=== PATIENT | male | born 1960 | race Caucasian/White ===

== ENCOUNTER 2017-09-26 13:52 | Emergency (ER) | payer BC, OTHER ==
--- NOTE | 2017-09-26 14:22 | PDOC ---
History of Present Illness - General History Source: Patient Exam Limitations: No Limitations - History of Present Illness Initial Comments: 09/26/17 14:05 57y M hx of htn presents with L shoulder pain. The pt states that he was taking a nap yesterday and he woke up went down some stairs and fell down approx 5 steps. Pt states he doesnt recall everything exactly, but realls stumbling down a few stops and then landed on his L shoulder. Pt denies any head injury, neck pain, back pain, leg pain, abd pain, R arm pain, vision changes, numbness/ weakness. Pt took some ibuprofen and oxycodone last night afterwards with some improvement of pain, but pt noticed he couldnt abduct his shoulder so presented for evaluation. Pt noted he had some tingling at the 2-4th finger tips, but notes he usually has some tingling in those fingers for many months but hasnt mentioned anything to his doctor. pt denies any LOC. pt denies feeling any cp, sob, palpitations, dizziness/ lightheadednss, vision changes, abd pain, back pain prior to the fall. 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 <Tristin Perez - Last Filed: 09/26/17 15:15> <Rosa Gonzalez - Last Filed: 09/26/17 15:27> - General Stated Complaint: L SHOULDER PAIN Time Seen by Provider: 09/26/17 13:54 Past History <Tristin Perez - Last Filed: 09/26/17 15:15> <Rosa Gonzalez - Last Filed: 09/26/17 15:27> - Past Medical History Allergies/Adverse Reactions: Allergies Allergy/AdvReac Type Severity Reaction Status Date / Time Penicillins Allergy Unknown Verified 09/26/17 14:14 Home Medications: Ambulatory Orders Amlodipine Besylate [Norvasc -] 10 mg PO DAILY 09/26/17 Oxycodone HCl 5 mg PO QID PRN #10 tablet MDD 4 09/26/17 Valsartan [Diovan] 160 mg PO DAILY 09/26/17 Review of Systems - Review of Systems Able to Perform ROS?: Yes Comments:: 09/26/17 14:22 CONSTITUTIONAL: No reported: Fever, Chills, Diaphoresis, Generalized Weakness, Malaise, Loss of Appetite HEENT: No reported: Rhinorrhea, Nasal Congestion, Throat Pain, Throat Swelling, Difficulty Swallowing, Mouth Swelling, Ear Pain, Eye Pain, Visual Changes CARDIOVASCULAR: No reported: Chest Pain, Syncope, Palpitations, Irregular Heart Rate, Lightheadedness, Peripheral Edema RESPIRATORY: No reported: Cough, Shortness of Breath, SOB with Exertion, Orthopnea, Wheezing , Stridor, Hemoptysis GASTROINTESTINAL: No reported: Abdominal pain, Abdominal Distension, Nausea, Vomiting, Diarrhea, Constipation, Melena, Hematochezia GENITOURINARY: No reported: Dysuria, Frequency, Urgency, Hesitancy, Flank Pain, Genital Pain MUSCULOSKELETAL: + l shoulder pain, tingling to fingers No reported: Myalgia, Arthralgia, Joint Swelling, Back pain, Neck Pain SKIN: No reported: Rash, Itching, Pallor HEMEATOLOGIC/IMMUNOLOGIC: No reported: Easy Bleeding, Easy Bruising, Lymphadenopathy, Frequent infections ENDOCRINE: No reported: Unexplained Weight Gain, Unexplained Weight Loss, Heat Intolerance , Cold Intolerance NEUROLOGIC: No reported: Headache, Focal Weakness, Paresthesias, Vertigo, Lightheadedness, Unsteady Gait, Seizure, Mental Status Changes, Incontinence PSYCHIATRIC: No reported: Anxiety, Depression <Ana,Tristin - Last Filed: 09/26/17 15:15> *Physical Exam - Physical Exam Comments: 09/26/17 14:23 GENERAL: The patient is awake, alert, and fully oriented, Nontoxic - in no acute distress. HEAD: Normocephalic, atraumatic. EYES: extraocular movements intact, sclera anicteric, conjunctiva clear. ENT: Normal voice, Moist mucous membranes. NECK: Normal range of motion, supple BACK: No midline tenderness to the cervical, thoracic or lumbar spine LUNGS: Breath sounds equal, clear to auscultation bilaterally. No wheezes, no rhonchi, no rales. HEART: Regular rate and rhythm, without murmur, rub or gallop. ABDOMEN: Soft, nontender, EXTREMITIES: Normal range of motion, no edema. No clubbing or cyanosis. No cords, erythema, or tenderness. NEUROLOGICAL: No facial assymetry, Normal speech, sensation intact symmetrically thrhout, environmental tech strength symmetric in hand/fingers/wrist/elbow SKIN: Warm, Dry, normal turgor, Musculoskelatal: FROM of R shoulders, b/l elbows, wrist. FROM of hips, knees, ankles - No signs of ecchymosis, erythema, or crepitus noted on palpation extremities, chest wall, clavicals, ribs, back. +fulness of L shoulder, inability to abduct L shoulder, able to extend to approx 80 degrees, able to touch contralateral shoulder with L hand. <Tristin Perez - Last Filed: 09/26/17 15:15> - Vital Signs Last Vital Signs Temp Pulse Resp BP Pulse Ox 98.4 F 81 16 125/88 96 09/26/17 14:12 09/26/17 14:12 09/26/17 14:12 09/26/17 14:12 09/26/17 14:12 <Rosa Gonzalez - Last Filed: 09/26/17 15:27> ED Treatment Course - RADIOLOGY Radiology Studies Ordered: Category Date Time Status SHOULDER-LEFT [RAD] Stat Radiology 09/26/17 14:04 Ordered <Tristin Perez - Last Filed: 09/26/17 15:15> Medical Decision Making - Medical Decision Making 09/26/17 14:25 ddx includes shoulder fx, disloation, humeral head injury pt declines pain meds 09/26/17 14:41 on xray pt has an impacted l humeral fracture will notify orthopedics pt placed in a sling <Tristin Perez - Last Filed: 09/26/17 15:15> - Medical Decision Making 2:45pm Call placed to Dr. Mace's answering service, vacuum cleaner repair person orthopedist, awaiting call back. 3:10pm Second call placed to Dr. Mace's answering service, vacuum cleaner repair person orthopedist, awaiting call back. 3:12pm Call returned from Dr. Mace, case was discussed. <Rosa Gonzalez - Last Filed: 09/26/17 15:27> *DC/Admit/Observation/Transfer - Discharge Dispostion Admit: No <Tristin Perez - Last Filed: 09/26/17 15:15> <Rosa Gonzalez - Last Filed: 09/26/17 15:27> Diagnosis at time of Disposition: Fracture of humeral head, closed Qualifiers: Encounter type: initial encounter Laterality: left Qualified Code(s): S42.292A - Other displaced fracture of upper end of left humerus, initial encounter for closed fracture - Discharge Dispostion Disposition: HOME Condition at time of disposition: Improved - Prescriptions Prescriptions: Oxycodone HCl 5 mg PO QID PRN #10 tablet MDD 4 PRN Reason: Pain - Referrals Referrals: Baljeet Liu MD [Primary Care Provider] - Martin Mace MD [Staff Physician] - - Patient Instructions Printed Discharge Instructions: DI for Humeral Fracture Additional Instructions: Keep your arm in a sling. Take motrin and tylenol as needed for pain. If you have further pain that is not controlled, you can take the oxycodone. If you take the oxycodone, do not drive or operate any heavy machinery as it may make you sleepy. Return to the emergency department immediately with ANY new, persistent or worsening symptoms. You MUST call and follow up with Dr. Mace tomorrow for further evaluation of your symptoms. Results were discussed with you. Please make sure your doctor reviews the results of your emergency evaluation. Print Language: INDONESIAN
[2017-09-26 14:28] VITALS: BP 125/88; PULSE 81; TEMP 98.4; BMI 26.5
== END 2017-09-26 15:24 | disposition home or self-care (01) ==
LOC: SUPCPDRO 13:52 → FER 13:52
DX: S42.292A Other displaced fracture of upper end of left humerus, initial encounter for closed fracture (principal); W10.9XXA Fall (on) (from) unspecified stairs and steps, initial encounter; Y93.89 Activity, other specified; Y92.9 Unspecified place or not applicable
CPT/HCPCS: 73030-TC-LT-FY; 99282-25

== ENCOUNTER 2018-07-12 04:54 | Inpatient (IN) | payer BC, OTHER ==
--- NOTE | 2018-07-12 04:57 | PDOC ---
History of Present Illness - General Chief Complaint: Pain Stated Complaint: ABD PAIN Time Seen by Provider: 07/12/18 04:57 History Source: Patient Exam Limitations: No Limitations - History of Present Illness Initial Comments: 07/12/18 04:57 Mr Pedroza is a 58 yo m who presents ambulatory to the ER with a complaint of abdominal pain Pt has a h/o HTN and a past surgical history of appendectomy (1998) and hernia repair (2003) Pt states he was in his usual state of health, felt well yesterday, tolerate po until this morning between 1 and 1:30 am He developed diffuse abdominal pain, described as sharp, constant but intermittently worsening, at it worse pain was 10/10 Pain associated with nausea and vomiting (x 2 , non bloody, non bilious, "food chunks") Pt had a small bowel movement this evening Not passing flatus Pt states he had something similar last night but it resolved almost immediately Pt denies dysuria, hematuria Pt last meal was 7pm, meatloaf 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 HEAD, EYES, EARS, NOSE AND THROAT: No: change in vision, ear pain, discharge, sore throat, throat swelling. CARDIOVASCULAR: No: chest pain, lightheadedness, palpitations, syncope RESPIRATORY: No: cough, shortness of breath, wheezing, hemoptysis, stridor. GASTROINTESTINAL: Yes: nausea, vomiting, decreased stool output, flatus GENITOURINARY: No: dysuria, hematuria, frequency, urgency, flank pain. MUSCULOSKELETAL: No: back pain, neck pain, joint pain, muscle swelling or pain SKIN: No: lesions, pallor, rash or easy bruising. NEUROLOGIC: No: headache, vertigo, paresthesias, weakness HEMATOLOGIC/LYMPHATIC: No: anemia, easy bleeding, swelling nodes. PE: GENERAL: The patient is in no acute distress. HEAD: Normal EYES: PERRLA, EOMI, sclera anicteric, conjunctiva clear. ENT: Ears normal, nares patent, oropharynx clear without exudates. Moist mucous membranes. NECK: Normal range of motion, supple without lymphadenopathy, JVD, or masses. LUNGS: Breath sounds equal, clear to auscultation bilaterally. No wheezes, and no crackles. HEART:Regular rate and rhythm, normal S1 and S2 without murmur, rub or gallop. ABDOMEN: Soft, distended, hypoactive bowel sounds RUQ and epigastrium tender to palpation No involuntary guarding, no rebound EXTREMITIES: Normal range of motion, no edema. No clubbing or cyanosis. No erythema, or tenderness. NEUROLOGICAL: Cranial nerves II through XII grossly intact. Normal speech. No focal neurological deficits. MUSCULOSKELETAL: Back non-tender to palpation, no CVA tenderness SKIN: Warm, Dry, normal turgor, no rashes or lesions noted. 07/12/18 05:34 Past History - Past Medical History Allergies/Adverse Reactions: Allergies Allergy/AdvReac Type Severity Reaction Status Date / Time Penicillins Allergy Unknown Verified 09/26/17 14:14 Home Medications: Ambulatory Orders Amlodipine Besylate [Norvasc -] 10 mg PO DAILY 09/26/17 Valsartan [Diovan] 160 mg PO DAILY 09/26/17 COPD: No HTN: Yes Hypercholesterolemia: Yes - Surgical History Appendectomy: Yes - Suicide/Smoking/Psychosocial Hx Smoking History: Never smoked Hx Alcohol Use: Yes Drug/Substance Use Hx: No ED Treatment Course - LABORATORY CBC & Chemistry Diagram: 07/20/18 07:26 07/20/18 07:26 Medical Decision Making - Medical Decision Making 07/12/18 05:17 58 yo M presenting to the ER with a complaint of abdominal pain DD includes but is not limited to: incarcerated hernia, cholecystitis, pancreatitis, gastritis, PUD, appendicitis, diverticulitis w or w/o abscess or perforation, colitis, regional ileitis (Crohn s disease), SBO, bowel ischemia, bowel perforation, gastroenteritis, CAD possible but less likely (no chest pain at all, all abdominal pain) 07/12/18 05:31 Will do: Labs UA IVF/Zofran/Morphine/Pepcid CT abd and pelvis EKG 07/12/18 06:14 Laboratory Tests 07/12/18 05:41 WBC 16.7 H Hgb 17.6 H Hct 50.9 H Plt Count 302 EKG: sinus bradycardia rate of 52 bpm, axis nml, intervals abn - pr:170ms, QRS: 162ms (prolonged), QTc: 455ms, RBBB, no st elevations or depressions old EKG not available for comparison 07/12/18 06:30 Laboratory Tests 07/12/18 05:41 PT with INR 11.20 INR 0.95 07/12/18 06:47 Laboratory Tests 07/12/18 05:41 Sodium 141 Potassium 3.6 Chloride 102 Carbon Dioxide 31 BUN 21 H Creatinine 1.2 Random Glucose 197 H Total Bilirubin 3.4 H AST 409 H ALT 308 H Total Amylase > 1300 H Lipase [address] now Will change fluids to LR Pt signed out to Dr Bob *DC/Admit/Observation/Transfer Diagnosis at time of Disposition: Gallstone pancreatitis - Discharge Dispostion Condition at time of disposition: Improved - Referrals - Patient Instructions - Post Discharge Activity
[2018-07-12] MEDS ORDERED: SODIUM CHLORIDE 1,000 ML IV STA (05:08)
[2018-07-12] MEDS ORDERED: ONDANSETRON 4 MG/2 ML VIAL IVPUSH ONE (05:08)
[2018-07-12] MEDS ORDERED: FAMOTIDINE 20 MG/50 ML IVPB 20 MG/50 ML MG IVPB ONE ×2 (05:08→05:25)
[2018-07-12] MEDS ORDERED: morphine CARPU-JECT 4 MG/1 ML DISP.SYRIN IVPUSH ONE ×2 (05:08→06:23)
[2018-07-12] MEDS ORDERED: ONDANSETRON 4 MG/2 ML VIAL ONE (05:25)
[2018-07-12] MEDS ORDERED: morphine SULFATE 4 MG/ML VIAL ONE ×2 (05:25→06:29)
[2018-07-12 06:10] LABS: BASO % 0.3 % (0-2.0); EOS % 0.1 % (0-4.5); HEMATOCRIT 50.9 % (35.4-49); HEMOGLOBIN 17.6 GM/dL (11.7-16.9); LYMPH % 3.5 % (8-40); MCH 33.1 pg (25.7-33.7); MCHC 34.5 g/dl (32.0-35.9); MEAN CELL VOLUME 95.9 fl (80-96); MEAN PLT VOLUME 8.1 fl (7.5-11.1); NEUT % 91.1 % (42.8-82.8); PLATELET COUNT 302 K/MM3 (134-434); RBC 5.31 M/mm3 (4.00-5.60); RDW 12.8 % (11.9-15.9); WHITE BLOOD COUNT 16.7 K/mm3 (4.0-10.0)
[2018-07-12 06:25] LABS: INR 0.95 (0.83-1.09); PROTHROMBIN TIME (PATIENT) 11.2 SEC (9.7-13.0)
[2018-07-12 06:46] LABS: ALBUMIN 3.9 g/dl (3.4-5.0); ALK PHOS 81 U/L (45-117); AMYLASE > 1300 U/L (25-115); ANION GAP 8 MMOL/L (8-16); BILIRUBIN,TOTAL 3.4 mg/dL (0.2-1); BLOOD UREA NITROGEN 21 mg/dL (7-18); CALCIUM 9.8 mg/dL (8.5-10.1); CHLORIDE 102 mmol/L (98-107); CO2 31 mmol/L (21-32); CREATININE 1.2 mg/dL (0.55-1.3); GLUCOSE,RANDOM 197 mg/dL (74-106); LIPASE 27605 U/L (73-393); POTASSIUM 3.6 mmol/L (3.5-5.1); SGOT/AST 409 U/L (15-37); SGPT/ALT 308 U/L (13-61); SODIUM 141 mmol/L (136-145); TOT PROT 7.8 g/dl (6.4-8.2)
[2018-07-12] MEDS ORDERED: LACTATED RINGERS SOLUTION 1,000 ML/1,000 ML INFUS.BAG IV SCH ×5 (07:00→21:00)
[2018-07-12] MEDS ORDERED: HYDROmorphone HCL CARPU-JECT 1 MG/1 ML DISP.SYRIN IVPUSH ONE (07:56)
--- NOTE | 2018-07-12 08:02 | PDOC ---
*Physical Exam - Vital Signs Last Vital Signs Temp Pulse Resp BP Pulse Ox 97.7 F 55 L 14 119/85 100 07/12/18 06:26 07/12/18 06:26 07/12/18 06:26 07/12/18 06:26 07/12/18 06:26 ED Treatment Course - LABORATORY CBC & Chemistry Diagram: 07/12/18 05:41 07/12/18 05:41 - ADDITIONAL ORDERS Additional order review: Laboratory Results 07/12/18 07/12/18 07/12/18 05:41 05:41 05:41 PT with INR INR Sodium 141 Potassium 3.6 Chloride 102 Carbon Dioxide 31 Anion Gap 8 BUN 21 H Creatinine 1.2 Creat Clearance w eGFR > 60 Random Glucose 197 H Lactic Acid Cancelled Calcium 9.8 Total Bilirubin 3.4 H AST 409 H ALT 308 H Alkaline Phosphatase 81 Creatine Kinase 111 Troponin I < 0.02 Total Protein 7.8 Albumin 3.9 Total Amylase > 1300 H Lipase 66412 H 07/12/18 05:41 PT with INR 11.20 INR 0.95 Sodium Potassium Chloride Carbon Dioxide Anion Gap BUN Creatinine Creat Clearance w eGFR Random Glucose Lactic Acid Calcium Total Bilirubin AST ALT Alkaline Phosphatase Creatine Kinase Troponin I Total Protein Albumin Total Amylase Lipase 07/12/18 05:41 RBC 5.31 MCV 95.9 MCHC 34.5 RDW 12.8 MPV 8.1 Neutrophils % 91.1 H Lymphocytes % 3.5 L Monocytes % 5.0 Eosinophils % 0.1 Basophils % 0.3 - RADIOLOGY Radiology Studies Ordered: Category Date Time Status ABDOMEN US -LIMITED [US] Stat Ultrasound 07/12/18 07:44 Ordered - Medications Given in the ED: ED Medications Discontinued Medications Generic Name Dose Route Start Last Admin Trade Name Freq PRN Reason Stop Dose Admin Famotidine/Sodium Chloride 20 mg in 50 mls @ 100 mls/hr 07/12/18 05:08 05:30 Pepcid 20 Mg Premixed Ivpb - IVPB 07/12/18 05:37 100 mls/hr ONCE ONE Administration Morphine Sulfate 4 mg 07/12/18 05:08 07/12/18 05:25 Morphine Injection - IVPUSH 07/12/18 05:09 4 mg ONCE ONE Administration Morphine Sulfate 4 mg 07/12/18 06:23 07/12/18 06:25 Morphine Injection - IVPUSH 07/12/18 06:24 4 mg ONCE ONE Administration Ondansetron HCl 4 mg 07/12/18 05:08 07/12/18 05:40 Zofran Injection IVPUSH 07/12/18 05:09 4 mg ONCE ONE Administration Medical Decision Making - Medical Decision Making 07/12/18 07:57 Received signout on this 58y/o M h/o appendectomy p/w acute onset upper abd pain /n/v. workup revealed elevated LFT including bili and amylase/lipase. pt received fluids and pain meds, plan to f/u ctap and admit. CTAP shows CBD dilatation and ampullar calcification suspicious for stone, consistent with suspected diagnosis of gallstone pancreatitis. Pt sees Dr. Liu, will admit to hospitalist with GI and Gen Surg consults. 07/12/18 08:29 accepted for inpt med/surg by EUNICE Corbett. Given need for ERCP, will need transfer to [facility]. Will arrange consults. *DC/Admit/Observation/Transfer Diagnosis at time of Disposition: Gallstone pancreatitis - Discharge Dispostion Condition at time of disposition: Good Decision to Admit order: Yes - Referrals Referrals: Baljeet Liu MD [Primary Care Provider] - - Patient Instructions - Post Discharge Activity
[2018-07-12] MEDS ORDERED: HYDROmorphone HCL CARPU-JECT 1 MG/1 ML DISP.SYRIN ONE (08:07)
--- NOTE | 2018-07-12 08:18 | HP ---
CHIEF COMPLAINT: PCP: HISTORY OF PRESENT ILLNESS: ER course was notable for: (1) (2) (3) Recent Travel: PAST MEDICAL HISTORY: PAST SURGICAL HISTORY: Social History: Smoking: Alcohol: Drugs: Family History: Allergies Penicillins Allergy (Unknown, Verified 09/26/17 14:14) HOME MEDICATIONS: Home Medications Medication Instructions Recorded Amlodipine Besylate [Norvasc -] 10 mg PO DAILY 09/26/17 Oxycodone HCl 5 mg PO QID PRN #10 tablet MDD 4 09/26/17 Valsartan [Diovan] 160 mg PO DAILY 09/26/17 REVIEW OF SYSTEMS CONSTITUTIONAL: Absent: fever, chills, diaphoresis, generalized weakness, malaise, loss of appetite, weight change HEENT: Absent: rhinorrhea, nasal congestion, throat pain, throat swelling, difficulty swallowing, mouth swelling, ear pain, eye pain, visual changes CARDIOVASCULAR: Absent: chest pain, syncope, palpitations, irregular heart rate, lightheadedness , peripheral edema RESPIRATORY: Absent: cough, shortness of breath, dyspnea with exertion, orthopnea, wheezing, stridor, hemoptysis GASTROINTESTINAL: Absent: abdominal pain, abdominal distension, nausea, vomiting, diarrhea, constipation, melena, hematochezia GENITOURINARY: Absent: dysuria, frequency, urgency, hesitancy, hematuria, flank pain, genital pain MUSCULOSKELETAL: Absent: myalgia, arthralgia, joint swelling, back pain, neck pain SKIN: Absent: rash, itching, pallor HEMATOLOGIC/IMMUNOLOGIC: Absent: easy bleeding, easy bruising, lymphadenopathy, frequent infections ENDOCRINE: Absent: unexplained weight gain, unexplained weight loss, heat intolerance, cold intolerance NEUROLOGIC: Absent: headache, focal weakness or paresthesias, dizziness, unsteady gait, seizure, mental status changes, bladder or bowel incontinence PSYCHIATRIC: Absent: anxiety, depression, suicidal or homicidal ideation, hallucinations. PHYSICAL EXAMINATION Vital Signs - 24 hr 07/12/18 07/12/18 07/12/18 05:03 06:26 08:04 Temperature 97.7 F Pulse Rate 50 L Pulse Rate [ 55 L 60 Left Radial] Respiratory 15 14 18 Rate Blood Pressure 139/95 Blood Pressure 119/85 128/91 [Right Arm] O2 Sat by Pulse 100 100 96 Oximetry (%) GENERAL: Awake, alert, and fully oriented, in no acute distress. HEAD: Normal with no signs of trauma. EYES: Pupils equal, round and reactive to light, extraocular movements intact, sclera anicteric, conjunctiva clear. No lid lag. EARS, NOSE, THROAT: Ears normal, nares patent, oropharynx clear without exudates. Moist mucous membranes. NECK: Normal range of motion, supple without lymphadenopathy, JVD, or masses. LUNGS: Breath sounds equal, clear to auscultation bilaterally. No wheezes, and no crackles. No accessory muscle use. HEART: Regular rate and rhythm, normal S1 and S2 without murmur, rub or gallop. ABDOMEN: Soft, nontender, not distended, normoactive bowel sounds, no guarding, no rebound, no masses. No hepatomegaly or splenomegaly. MUSCULOSKELETAL: Normal range of motion at all joints. No bony deformities or tenderness. No CVA tenderness. UPPER EXTREMITIES: 2+ pulses, warm, well-perfused. No cyanosis. No clubbing. No peripheral edema. LOWER EXTREMITIES: 2+ pulses, warm, well-perfused. No calf tenderness. No peripheral edema. NEUROLOGICAL: Cranial nerves II-XII intact. Normal speech. Normal gait. PSYCHIATRIC: Cooperative. Good eye contact. Appropriate mood and affect. SKIN: Warm, dry, normal turgor, no rashes or lesions noted, normal capillary refill. Laboratory Results - last 24 hr 07/12/18 07/12/18 07/12/18 05:41 05:41 05:41 WBC 16.7 H RBC 5.31 Hgb 17.6 H Hct 50.9 H MCV 95.9 MCH 33.1 MCHC 34.5 RDW 12.8 Plt Count 302 MPV 8.1 Absolute Neuts (auto) 15.2 H Neutrophils % 91.1 H Lymphocytes % 3.5 L Monocytes % 5.0 Eosinophils % 0.1 Basophils % 0.3 Nucleated RBC % 0 PT with INR 11.20 INR 0.95 Sodium 141 Potassium 3.6 Chloride 102 Carbon Dioxide 31 Anion Gap 8 BUN 21 H Creatinine 1.2 Creat Clearance w eGFR > 60 Random Glucose 197 H Lactic Acid Calcium 9.8 Total Bilirubin 3.4 H AST 409 H ALT 308 H Alkaline Phosphatase 81 Creatine Kinase Troponin I Total Protein 7.8 Albumin 3.9 Total Amylase > 1300 H Lipase 71493 H 07/12/18 07/12/18 05:41 05:41 WBC RBC Hgb Hct MCV MCH MCHC RDW Plt Count MPV Absolute Neuts (auto) Neutrophils % Lymphocytes % Monocytes % Eosinophils % Basophils % Nucleated RBC % PT with INR INR Sodium Potassium Chloride Carbon Dioxide Anion Gap BUN Creatinine Creat Clearance w eGFR Random Glucose Lactic Acid Cancelled Calcium Total Bilirubin AST ALT Alkaline Phosphatase Creatine Kinase 111 Troponin I < 0.02 Total Protein Albumin Total Amylase Lipase ASSESSMENT/PLAN:
[2018-07-12] MEDS ORDERED: HYDROmorphone HCL CARPU-JECT 1 MG/1 ML DISP.SYRIN IVPUSH PRN (08:29)
[2018-07-12] MEDS ORDERED: ONDANSETRON 4 MG/2 ML VIAL IVPUSH PRN (08:34)
[2018-07-12] MEDS ORDERED: amLODIPine BESYLATE 10 MG TABLET (FP) PO SCH (10:00)
[2018-07-12] MEDS ORDERED: VALSARTAN 160 MG TABLET (UD) PO SCH (10:00)
[2018-07-12 11:30] LABS: BILIRUBIN,DIRECT 1.3 mg/dL (0.0-0.2)
--- NOTE | 2018-07-12 11:48 | HP ---
CHIEF COMPLAINT: PCP: Dr Liu HISTORY OF PRESENT ILLNESS: Patient is a 58 year old male presented to [facility] with the chief complaint of abdominal pain x 2 days. As per the patient, abdominal pain started suddenly in the epigastric area, right upper quadrant, got worse 10/10 in intensity, non radiating, associated with nausea and one episode of vomiting. Hence came in to the ED for further evaluation and treatment. Patient reports that he drinks alcohol daily (3 beers/day) since 30 years. States he doesn't need detox. Bowel.Bladder habit normal. Sleep/Appetite normal prior to his illness. Patient was sent from [facility] to [facility] this morning. ER course was notable for: (1) Afebrile, bradycardia, leukocytosis 16.7; Amylase 1300, Lipase 20564 (2) EKG: NSR, bradycardia. Right bundle branch block. (3) IV LR, Dilaudid, Levaquin Recent Travel: None PAST MEDICAL HISTORY: Hypertension, Asthma PAST SURGICAL HISTORY: Appendectomy and Hernia 2004 Social History: Smoking: Denies Alcohol: Daily about 3 bottles/day x 30 yrs Drugs: Denies Family History: Non contributory Allergies Penicillins Allergy (Unknown, Verified 09/26/17 14:14) HOME MEDICATIONS: Home Medications Medication Instructions Recorded Amlodipine Besylate [Norvasc -] 10 mg PO DAILY 09/26/17 Oxycodone HCl 5 mg PO QID PRN #10 tablet MDD 4 09/26/17 Valsartan [Diovan] 160 mg PO DAILY 09/26/17 REVIEW OF SYSTEMS CONSTITUTIONAL: Absent: fever, chills, diaphoresis, generalized weakness, malaise, loss of appetite, weight change HEENT: Absent: rhinorrhea, nasal congestion, throat pain, throat swelling, difficulty swallowing, mouth swelling, ear pain, eye pain, visual changes CARDIOVASCULAR: Absent: chest pain, syncope, palpitations, irregular heart rate, lightheadedness , peripheral edema RESPIRATORY: Absent: cough, shortness of breath, dyspnea with exertion, orthopnea, wheezing, stridor, hemoptysis GASTROINTESTINAL: Present: abdominal pain, abdominal distension, nausea, vomiting, Absent: diarrhea, constipation, melena, hematochezia GENITOURINARY: Absent: dysuria, frequency, urgency, hesitancy, hematuria, flank pain, genital pain MUSCULOSKELETAL: Absent: myalgia, arthralgia, joint swelling, back pain, neck pain SKIN: Absent: rash, itching, pallor HEMATOLOGIC/IMMUNOLOGIC: Absent: easy bleeding, easy bruising, lymphadenopathy, frequent infections ENDOCRINE: Absent: unexplained weight gain, unexplained weight loss, heat intolerance, cold intolerance NEUROLOGIC: Absent: headache, focal weakness or paresthesias, dizziness, unsteady gait, seizure, mental status changes, bladder or bowel incontinence PSYCHIATRIC: Absent: anxiety, depression, suicidal or homicidal ideation, hallucinations. PHYSICAL EXAMINATION Vital Signs - 24 hr 07/12/18 07/12/18 07/12/18 05:03 06:26 08:04 Temperature 97.7 F Pulse Rate 50 L Pulse Rate [ 55 L 60 Left Radial] Respiratory 15 14 18 Rate Blood Pressure 139/95 Blood Pressure 119/85 128/91 [Right Arm] O2 Sat by Pulse 100 100 96 Oximetry (%) GENERAL: Middle aged male, lying in bed, Awake, alert, and fully oriented, in no acute distress. HEAD: Normal with no signs of trauma. EYES: EOM intact, no pallor or icterus. EARS, NOSE, THROAT: Ears normal. Moist mucous membranes. NECK: Supple. LUNGS: B/L breath sounds equal, no added sounds. HEART:Bradyacardia, Regular rate and rhythm, normal S1 and S2 without murmur. ABDOMEN: Soft, Mohan's sign positive, tenderness on the right upper quadrant and epigastric area, BS+. No organomegaly. MUSCULOSKELETAL: Normal range of motion at all joints. No bony deformities or tenderness. No CVA tenderness. UPPER EXTREMITIES: 2+ pulses, warm, well-perfused. No cyanosis. No clubbing. No peripheral edema. LOWER EXTREMITIES: 2+ pulses, warm, well-perfused. No calf tenderness. No peripheral edema. NEUROLOGICAL: No facial droop. Power 5/5 in all extremities, no tremors. Normal speech. Gait not observed. PSYCHIATRIC: Cooperative. Good eye contact. Appropriate mood and affect. SKIN: Warm, dry, normal turgor, no rashes or lesions noted, normal capillary refill. Laboratory Results - last 24 hr 07/12/18 07/12/18 07/12/18 05:41 05:41 05:41 WBC 16.7 H RBC 5.31 Hgb 17.6 H Hct 50.9 H MCV 95.9 MCH 33.1 MCHC 34.5 RDW 12.8 Plt Count 302 MPV 8.1 Absolute Neuts (auto) 15.2 H Neutrophils % 91.1 H Lymphocytes % 3.5 L Monocytes % 5.0 Eosinophils % 0.1 Basophils % 0.3 Nucleated RBC % 0 PT with INR 11.20 INR 0.95 Sodium 141 Potassium 3.6 Chloride 102 Carbon Dioxide 31 Anion Gap 8 BUN 21 H Creatinine 1.2 Creat Clearance w eGFR > 60 Random Glucose 197 H Lactic Acid Calcium 9.8 Total Bilirubin 3.4 H Direct Bilirubin 1.3 H AST 409 H ALT 308 H Alkaline Phosphatase 81 Creatine Kinase Troponin I Total Protein 7.8 Albumin 3.9 Total Amylase > 1300 H Lipase 31133 H 07/12/18 07/12/18 05:41 05:41 WBC RBC Hgb Hct MCV MCH MCHC RDW Plt Count MPV Absolute Neuts (auto) Neutrophils % Lymphocytes % Monocytes % Eosinophils % Basophils % Nucleated RBC % PT with INR INR Sodium Potassium Chloride Carbon Dioxide Anion Gap BUN Creatinine Creat Clearance w eGFR Random Glucose Lactic Acid Cancelled Calcium Total Bilirubin Direct Bilirubin AST ALT Alkaline Phosphatase Creatine Kinase 111 Troponin I < 0.02 Total Protein Albumin Total Amylase Lipase IMAGING Ultrasound of abdomen: 1. Mildly distended gallbladder with thickened wall and pericholecystic fluid. The associate team physician describes a positive Mohan sign and acute cholecystitis cannot be excluded. Clinical correlation and follow-up recommended. 2. Diffuse fatty infiltration of liver. Please see above discussion. Abdomen/Pelvis CT with contrast: 1. Findings consistent with acute pancreatitis , most marked about the head of the pancreas. There is free fluid in the peripancreatic region and right anterior pararenal space. 2. Mildly distended gallbladder with calculi. 3. Suspected 3 mm calculus within the distal CBD. 4. Splenomegaly. 5. Free pelvic fluid and right inguinal hernia. Please see above discussion. ASSESSMENT/PLAN: Patient is a 58 year old male with significant past medical history of Hypertension and Asthma presented to [facility] with the chief complaint of abdominal pain x 2 days. # Pancreatitis likely secondary to cholelithiasis and alcohol use c/o abdominal pain, nausea, vomiting, positive [place] Abdominal/Pelvis CT : consistent with pancreatitis Amylase 1300, lipase 22061, repeat Amylase and lipase in AM. Admit in Med/Surg Inpatient NPO IV LR @ 100 mls/hr IV Flagyl (allergic to penicillin) Pain control Pending recommendations from surgery # Cholelithiasis with CBD dilatation Suspected 3 mm calculus within the distal CBD. Elevated liver enzymes GI consult requested for possible ERCP. # Splenomegaly Likely from alcohol # Polycythemia H/H 17.6/50.9 # Alcohol abuse Drinks 3 beers daily Ativan 2mg Q4H PRN for agitation/withdrawal. Cannot use librium due to elevated liver enzymes # Hypertension-controlled Continue Amlodipine and Valsartan. # FEN IV LR @ 100mls/hr Electrolytes to be repeated NPO # Prophylaxis For DVT; on SCDs, heparin on hold for possible surgery For GI: Not indicated # Code status: Full Code # Dispo: Admitted in Med surg. Duration of stay unknown. Illness, Investigation and Plan of care explained to the patient. He verbalized understanding. Case discussed with Dr. Dickerson. Visit type - Emergency Visit Emergency Visit: Yes ED Registration Date: 07/12/18 Care time: The patient presented to the Emergency Department on the above date and was hospitalized for further evaluation of their emergent condition. - New Patient This patient is new to me today: Yes Date on this admission: 07/12/18 - Critical Care Critical Care patient: No
[2018-07-12 12:23] VITALS: BMI 25.4
[2018-07-12 12:23] LABS: ANISOCYTOSIS 0; PLATELET ESTIMATE NORMAL
--- NOTE | 2018-07-12 12:30 | CONSULT ---
- Consultation REQUESTING PROVIDER: Nam DAVIS CONSULT REQUEST: We have been asked to surgically evaluate this patient for ( specify). PCP:Shayne Browning MD HISTORY OF PRESENT ILLNESS: TAQUERIA who is a 58 y/o white male who experienced 2 episodes of post prandial RUQ and epigastric abdominal pain w/in the past 24-48 hours; the first episode resolved h/e the second persisted and he went to the [facility]; he was intially txed and a w/u ensued and he was subsequently xferred here ; he states he is feeling better; he also relates to abdominal bloating; pain was sharp w/radiation to his back and associated w/ nausea but no vomiting; he denies dark urine/light stools; he apparently is aware that he had a h/o cholelithiasis. He is a 3 can/day beer drinker; he does not smoke. PMHx: hypertension PSHx: RIH repair Home Medications Medication Instructions Recorded Amlodipine Besylate [Norvasc -] 10 mg PO DAILY 09/26/17 Oxycodone HCl 5 mg PO QID PRN #10 tablet MDD 4 09/26/17 Valsartan [Diovan] 160 mg PO DAILY 09/26/17 Allergies Allergy/AdvReac Type Severity Reaction Status Date / Time Penicillins Allergy Unknown Verified 09/26/17 14:14 REVIEW OF SYSTEMS: CONSTITUTIONAL: Absent: fever, chills, diaphoresis, generalized weakness, malaise, loss of appetite, weight change CARDIOVASCULAR: Absent: chest pain, syncope, palpitations, irregular heart rate, lightheadedness , peripheral edema RESPIRATORY: Absent: cough, shortness of breath, dyspnea with exertion, wheezing, stridor, hemoptysis GASTROINTESTINAL: Present: abdominal pain, abdominal distension, nausea, vomiting, no diarrhea, constipation, melena, hematochezia GENITOURINARY: Absent: dysuria, frequency, urgency, hesitancy, hematuria, flank pain, genital pain MUSCULOSKELETAL: Absent: myalgia, arthralgia, joint swelling, back pain, neck pain SKIN: Absent: rash, itching, pallor HEMATOLOGIC/IMMUNOLOGIC: Absent: easy bleeding, easy bruising, lymphadenopathy NEUROLOGIC: Absent: headache, focal weakness, paresthesias, dizziness, unsteady gait, seizure, mental status changes, bladder or bowel incontinence PSYCHIATRIC: Absent: anxiety, depression, suicidal or homicidal ideation, hallucinations. PHYSICAL EXAM: GENERAL: Awake, alert, and fully oriented, in no acute distress. HEAD: Normal with no signs of trauma. EYES: sclera anicteric, conjunctiva clear. NECK: Normal ROM, supple without lymphadenopathy, JVD, or masses. ABDOMEN: Soft, minimally tender, minimally distended, normoactive bowel sounds, no guarding, no rebound, no masses. No organomegaly. ? small reducible umbilical heria; recurrent RIH MUSCULOSKELETAL: Normal ROM at all joints. No bony deformities or tenderness. No CVA tenderness. UPPER EXTREMITIES: 2+ pulses, warm, well-perfused. No cyanosis. Cap refill <2 seconds. No peripheral edema. LOWER EXTREMITIES: 2+ pulses, warm, well-perfused. No calf tenderness. No peripheral edema. NEUROLOGICAL: Normal speech, gait not observed. PSYCH: Cooperative. Good eye contact. Appropriate mood and affect. SKIN: Warm, dry, normal turgor, no rashes or lesions noted. Vital Signs Temperature 97.7 F 07/12/18 06:26 Pulse Rate 60 07/12/18 08:04 Respiratory Rate 18 07/12/18 08:04 Blood Pressure 128/91 07/12/18 08:04 O2 Sat by Pulse Oximetry (%) 96 07/12/18 08:04 Lab Results WBC 16.7 K/mm3 (4.0-10.0) H 07/12/18 05:41 RBC 5.31 M/mm3 (4.00-5.60) 07/12/18 05:41 Hgb 17.6 GM/dL (11.7-16.9) H 07/12/18 05:41 Hct 50.9 % (35.4-49) H 07/12/18 05:41 MCV 95.9 fl (80-96) 07/12/18 05:41 MCHC 34.5 g/dl (32.0-35.9) 07/12/18 05:41 RDW 12.8 % (11.9-15.9) 07/12/18 05:41 Plt Count 302 K/MM3 (134-434) 07/12/18 05:41 Sodium 141 mmol/L (136-145) 07/12/18 05:41 Potassium 3.6 mmol/L (3.5-5.1) 07/12/18 05:41 Chloride 102 mmol/L (98-107) 07/12/18 05:41 Carbon Dioxide 31 mmol/L (21-32) 07/12/18 05:41 Anion Gap 8 MMOL/L (8-16) 07/12/18 05:41 BUN 21 mg/dL (7-18) H 07/12/18 05:41 Creatinine 1.2 mg/dL (0.55-1.3) 07/12/18 05:41 Random Glucose 197 mg/dL (74-106) H 07/12/18 05:41 Calcium 9.8 mg/dL (8.5-10.1) 07/12/18 05:41 INR 0.95 (0.83-1.09) 07/12/18 05:41 CT/US reviewed; labs reviewed IMP: gallstone pancreatitis/cholelithiasis PLAN: Suggest NPO/IVF/IVABS/GI evaluation for possible ERCP and related procedures; he will need lap ewsly which will hopefully be able to be done by weeks end pending response to tx. and pending therapeutic interventions. Trend LFT's and bilirubin and amylase/lipase. Victor Manuel Aviles MD FACS
[2018-07-12] MEDS ORDERED: ROCURONIUM BROMIDE 50 MG/5 ML VIAL ONE (13:15)
[2018-07-12] MEDS ORDERED: MIDAZOLAM HCL 2 MG/2 ML SINGLE DOSE VIAL ONE (13:15)
[2018-07-12] MEDS ORDERED: fentaNYL CITRATE 250 MCG/5 ML VIAL ONE (13:16)
[2018-07-12] MEDS ORDERED: CEFTRIAXONE 2 GM-D5W BAG 2 GM/50 ML BAG IVPB SCH (13:45)
--- NOTE | 2018-07-12 14:02 | CONS ---
DATE OF CONSULTATION: DATE OF DICTATION: 07/12/2018 HISTORY: The patient is a 58-year-old man with a past medical history of hypertension, asthma, appendectomy in the , and a hernia repair in 2004 who states he has been experiencing right-sided and upper quadrant abdominal pain for the past couple of days. He states the pain became worse at 1:30 in the morning prompting him to go to [facility]. He also admits to an episode of nausea and vomiting. Denies previous episodes. No diarrhea, constipation, melena, hematochezia, hematemesis, or weight loss. He does report drinking 3 beers daily since the age of 32. He does not smoke. He has never had an upper endoscopy or colonoscopy in the past. PAST MEDICAL HISTORY: As put in the HPI. PAST SURGICAL HISTORY: As put in the HPI. ALLERGIES: PENICILLIN. SOCIAL HISTORY: Drinks alcohol. Does not smoke. No intravenous drug abuse. FAMILY HISTORY: No history of GI or gynecological malignancy or pancreatic disease. REVIEW OF SYSTEMS: Negative except for pertinent positives in the HPI. HOME MEDICATIONS: Reviewed include Norvasc, Diovan, and oxycodone. PHYSICAL EXAMINATION: Vital Signs: Temperature 98, pulse 80, respiratory rate 12, pulse oximetry 96% on room air, blood pressure 143/96. General: In no acute distress. A pleasant man. HEENT: Anicteric sclerae. Cardiovascular: S1, S2. Regular rate and rhythm. Lungs: Bilaterally clear to auscultation. Abdomen: Tender in the right upper quadrant and epigastrium without rebound or guarding. Extremities: No edema. LABORATORIES: White blood cell count 16, hemoglobin 17, hematocrit 50, MCV 95, platelet count 302, INR 0.95. Sodium 141, potassium 3.6, BUN 21, creatinine 1.2 , glucose 197. Lactic acid not resulted. Total bilirubin 3.4, direct bilirubin 1.3, AST 409, ALT 308, alkaline phosphatase 81, total amylase greater than 1300, lipase 27,600. Troponin negative x1. He had abdomen and pelvis CT scan, which revealed acute pancreatitis, mildly distended gallbladder with calculi, and a 3-mm calculus within the distal CBD, splenomegaly. IMPRESSION: Pancreatitis most likely secondary to gallstone and underlying alcohol abuse. Also with imaging findings of choledocholithiasis. RECOMMENDATIONS: N.p.o. IV fluids at 200 mL/hr. Pain management. Panculture, blood cultures, urine culture. Zosyn therapy . Chest x-ray. Will discuss with Dr. Snell regarding plans for ERCP and timing of the ERCP. Trend liver tests, CBC, BUN, creatinine daily while hospitalized. We will follow this patient with you. DO CADY DIAZ/[id number] MTDD
[2018-07-12] MEDS ORDERED: IOHEXOL 300 MG/ML INFUS..BTL IV ONE (14:14)
[2018-07-12] MEDS ORDERED: LORazepam 2 MG/ML SDV VIAL IVPUSH PRN (14:19)
--- NOTE | 2018-07-12 14:55 | PN ---
Progress Note (short form) - Note Progress Note: GI Procedure Note: Please see ERCP report. After an expelled stone was found adjacent to the papilla and bulging in the duodenal wall suggested residual stones a sphincterotomy was performed and another 2 stones were extracted after which the sludge began to flow liberally. Brisk Ringers lactate will be ordered. Antibiotics should be considered. Cholecystectomy should be done when surgery decides upon the best interval.
--- NOTE | 2018-07-12 15:08 | PN ---
Teaching Attending Note Name of Resident: Diandra Hess ATTENDING PHYSICIAN STATEMENT I saw and evaluated the patient. I reviewed the resident's note and discussed the case with the resident. I agree with the resident's findings and plan as documented. SUBJECTIVE: C/O abd pain and nausea OBJECTIVE: Vital Signs Period Temp Pulse Resp BP Sys/Almaguer Pulse Ox Last 24 Hr 97.7 F-98.4 F 50-86 14-20 116-143/75-96 94-100 Middle aged man not n distress HEENT: Mm moist, no anemia, PERRLA EOMI NECK: No JVD no Bruit CHEST: CTA B/L CVS; S1S2 r no m/g/r ABD: Rt UQ tenderness, rebound + BS + EXT: No edema feet, no claf tenderness, Pulses + DIRECTOR OF STUDENT SERVICES: AOX3 non focal CBC, BMP 07/12/18 05:41 07/12/18 05:41 ASSESSMENT AND PLAN: 58 year old male presented with acute abdominal pain for 2 days, in the epigastric area, right upper quadrant, 0/10 in intensity, non radiating, associated with nausea and one episode of vomiting. Hence came in to the ED for further evaluation and treatment. also H/O ETOH abuse, drinks alcohol daily (3 beers/day) since 30 years. Patient also c/o fever and chills yesterday , leukocytosis 16.7; Amylase 1300, Lipase 27264, CT abd, Dilated CBD with 3 mm distal stone and pancreatitis , underwent ERCP performed shows bulging stones 2 stones removed Impression Gall stone pancreatitis Problem List - Problems (1) Gallstone pancreatitis Assessment/Plan: NPO except meds s/p ERCP by GI F/U GI and Surgery recommendation, IV Hydration NS 125 cc/HR, pain control, add on CRP , serial Lipase level, cont Ceftriaxone and Falgyl Code(s): K85.10 - BILIARY ACUTE PANCREATITIS WITHOUT NECROSIS OR INFECTION (2) HTN (hypertension) Assessment/Plan: Resume home meds Code(s): I10 - ESSENTIAL (PRIMARY) HYPERTENSION (3) ETOH abuse Assessment/Plan: Observe forr withdrawal/ DTS PRN Lorazepalm Thiamine and folic caid Code(s): F10.10 - ALCOHOL ABUSE, UNCOMPLICATED
--- NOTE | 2018-07-12 16:57 | EKG ---
Test Reason : Blood Pressure : / mmHG Vent. Rate : 052 BPM Atrial Rate : 052 BPM P-R Int : 170 ms QRS Dur : 162 ms QT Int : 490 ms P-R-T Axes : 000 028 -11 degrees QTc Int : 455 ms ECTOPIC ATRIAL RHYTHM RIGHT BUNDLE BRANCH BLOCK ABNORMAL ECG Confirmed by MD SANJANA, POLO ([id number]) on 07/12/2018 4:57:08 PM Referred By: MD URIARTE Confirmed By:POLO ALLAN MD
[2018-07-12 18:40] LABS: URINE APPEARANCE CLEAR; URINE BILIRUBIN NEGATIVE (<2.0 mg/dL); URINE COLOR AMBER; URINE GLUCOSE (UA) NEGATIVE (NEGATIVE); URINE KETONE NEGATIVE (NEGATIVE); URINE LEUK ESTERASE NEGATIVE (NEGATIVE); URINE NITRITE NEGATIVE (NEGATIVE); URINE PROTEIN 1+ (NEGATIVE); URINE UROBILINOGEN 4.0 E.U/dl mg/dL (0.2-1.0)
[2018-07-12 18:57] LABS: EPI CELLS RARE /HPF (FEW); URINE MUCUS RARE
[2018-07-13] MEDS ORDERED: LACTATED RINGERS SOLUTION 1,000 ML/1,000 ML INFUS.BAG IV SCH ×4 (03:00→15:00)
--- NOTE | 2018-07-13 07:40 | PN ---
GI Progress Note Subjective: Some abdominal pain Complains of feeling fullness in abdomen No BM / flatus from yesterday - Objective Vital Signs: Vital Signs Temperature 98.4 F 07/13/18 05:50 Pulse Rate 86 07/13/18 05:50 Respiratory Rate 20 07/13/18 05:50 Blood Pressure 123/79 07/13/18 05:50 O2 Sat by Pulse Oximetry (%) 95 07/12/18 21:00 Constitutional: Calm Eyes: No: Sclera Icterus Cardiovascular: Yes: Regular Rate and Rhythm Respiratory: Yes: CTA Bilaterally Gastrointestinal Inspection: Yes: Distention (mildly protuberant abdomen). No: Scars ...Auscultate: Yes: Normoactive Bowel Sounds ...Palpate: Yes: Soft, Tenderness (TTP mid abdomen and suprapubic region) ...Percussion: Yes: Tympanitic (mild tympany mid abdomen, dullness to percussion of the liver maintained) Edema: No (No LE edema) Neurological: Yes: Alert Labs: CBC, BMP 07/12/18 05:41 07/12/18 05:41 INR, PTT INR 0.95 (0.83-1.09) 07/12/18 05:41 Problem List - Problems (1) Gallstone pancreatitis Assessment/Plan: S/P ERCP with stone extraction Some suprapubic and mid abdominal tenderness to palpation on exam this morning Advise: Maintain NPO IV hydration. Lactated ringers @ 150cc/hr currently Ordered FUA to assess for ileus: Could have been precipitated by pancreatitis and worsened by ERCP Consider bladder scan given suprapubic tenderness Discussed plan with Yovany's nurse Code(s): K85.10 - BILIARY ACUTE PANCREATITIS WITHOUT NECROSIS OR INFECTION
[2018-07-13 08:22] LABS: BASO % 0.1 % (0-2.0); HEMATOCRIT 46.6 % (35.4-49); HEMOGLOBIN 15.8 GM/dL (11.7-16.9); LYMPH % 2.8 % (8-40); MCH 32.9 pg (25.7-33.7); MEAN CELL VOLUME 96.7 fl (80-96); MONO % 4.8 % (3.8-10.2); NEUT % 92.3 % (42.8-82.8); PLATELET COUNT 214 K/MM3 (134-434); RBC 4.82 M/mm3 (4.00-5.60); RDW 12.9 % (11.9-15.9)
[2018-07-13 08:56] LABS: ALK PHOS 57 U/L (45-117); ANION GAP 8 MMOL/L (8-16); BILIRUBIN,TOTAL 3.4 mg/dL (0.2-1); BLOOD UREA NITROGEN 22 mg/dL (7-18); CALCIUM 8.3 mg/dL (8.5-10.1); CHLORIDE 104 mmol/L (98-107); CO2 27 mmol/L (21-32); CREATININE 1.1 mg/dL (0.55-1.3); GLUCOSE,RANDOM 95 mg/dL (74-106); LIPASE 4878 U/L (73-393); MAGNESIUM 1.7 mg/dL (1.8-2.4); POTASSIUM 3.6 mmol/L (3.5-5.1); SGOT/AST 58 U/L (15-37); SGPT/ALT 137 U/L (13-61); SODIUM 140 mmol/L (136-145); TOT PROT 6.2 g/dl (6.4-8.2)
[2018-07-13 09:15] LABS: BILIRUBIN,DIRECT 0.4 mg/dL (0.0-0.2)
--- NOTE | 2018-07-13 09:48 | PN ---
Progress Note (short form) - Note Progress Note: Pt seen and examined. States his belly feels "full and swollen". Reports continued RUQ pain, improved with Dilaudid. NPO. Has been oob to the restroom without issue. Denies cp/sob, n/v/d, calf pain/edema. Vital Signs Temp 98.4 F 07/13/18 05:50 Pulse 86 07/13/18 05:50 Resp 20 07/13/18 05:50 BP 123/79 07/13/18 05:50 Pulse Ox 95 07/12/18 21:00 Intake & Output 07/12/18 07/12/18 07/13/18 11:59 23:59 11:59 Intake Total 600 Output Total 600 Balance 0 Weight 177 lb 9 oz Intake: IV 500 IVPB 100 Oral 0 Output: Urine 600 Void 600 Other: Voiding Method Urinal # Unmeasured Voids Void 1 Bowel Movement No # Bowel Movements 0 Height 5 ft 10 in Body Mass Index (BMI) 25.4 Weight Measurement Method Built in [facility] Weight Measurement Method Estimated by Staff CBC, BMP 07/13/18 07:30 07/13/18 07:30 Hepatic Panel Total Bilirubin 3.4 mg/dL (0.2-1) H 07/13/18 07:30 Direct Bilirubin 0.4 mg/dL (0.0-0.2) H 07/13/18 07:30 AST 58 U/L (15-37) H 07/13/18 07:30 ALT 137 U/L (13-61) H 07/13/18 07:30 Alkaline Phosphatase 57 U/L (45-117) 07/13/18 07:30 Albumin 3.0 g/dl (3.4-5.0) L 07/13/18 07:30 Gen: awake, alert, nad, laying in bed with RN bedside doing bladder scan (<40ml) Resp: cta b/l CV: rrr, s1s2 Abdomen: distended, soft, +TTP ruq, no rebound/guarding, hypoactive bowel sounds Ext: b/l calf without edema or pain A/P: 58 y/o M w/ PMHx htn, admitted 07/12 to [place] with ruq/epigastric pain , found to have gallstone pancreatitis/cholelithiasis, transferred to [facility] yesterday for ERCP, now s/p ERCP with sphincterotomy/balloon sweeping/removal of calculi. Afebrile. VSS, labs reviewed: leukocytosis trending up (19k, 16.7 yesterday) liver enyzmes trending down for the most part, T bilirubin remains unchanged ( 3.4) -Stat cxr/abd xray to r/o perforation/ileus -NPO -continue to trend labs -serial abdo exams -Monitor VS -Will follow closely -On OR schedule for lap wesly (Wednesday, 07/15 at 1700) Above janet attending Dr Aviles
[2018-07-13] MEDS: amLODIPine BESYLATE 10 MG TABLET (FP) PO SCH (10:05)
[2018-07-13] MEDS: VALSARTAN 160 MG TABLET (UD) PO SCH (10:06)
[2018-07-13] MEDS: HYDROmorphone HCl 2 MG/ML VIAL IVPUSH PRN ×3 (12:13→21:20)
--- NOTE | 2018-07-13 14:21 | PN ---
Physical Exam: SUBJECTIVE: Patient seen and examined at bedside. No acute events overnight. OBJECTIVE: Vital Signs Temperature 99.1 F 07/13/18 13:49 Pulse Rate 102 H 07/13/18 13:49 Respiratory Rate 22 H 07/13/18 13:49 Blood Pressure 122/82 07/13/18 13:49 O2 Sat by Pulse Oximetry (%) 95 07/13/18 09:00 GENERAL: AAOx3. HEENT: AT/NC. EOMI. Moist mucus membranes. NECK: Supple. LUNGS: B/L breath sounds equal HEART: RRR. Normal S1, S2. No murmurs noted. ABDOMEN: Soft, Mohan's sign positive, tenderness on the right upper quadrant and epigastric area, BS+. +Distension MUSCULOSKELETAL: Normal range of motion at all joints. No bony deformities or tenderness. No CVA tenderness. EXTREMITIES: 2+ dorsalis pedis pulses b/l. NEUROLOGICAL: No facial droop. Muscle strength 5/5 in all extremities, no tremors. Normal speech. Gait not observed. PSYCHIATRIC: Cooperative. Good eye contact. Appropriate mood and affect. SKIN: Warm, dry, normal turgor, no rashes or lesions noted, normal capillary refill. CBC, BMP 07/13/18 07:30 07/13/18 07:30 Active Medications Amlodipine Besylate (Norvasc -) 10 mg PO DAILY [facility] Last Admin: 07/13/18 10:05 Dose: 10 mg Hydromorphone HCl (Dilaudid Vial -) 1 mg IVPUSH Q4H PRN PRN Reason: PAIN LEVEL 6-10 Last Admin: 07/13/18 12:13 Dose: 1 mg Metronidazole (Flagyl 500mg Premixed Ivpb -) 500 mg in 100 mls @ 100 mls/hr IVPB Q8H-IV [facility] Last Admin: 07/13/18 10:05 Dose: 100 mls/hr Lactated Ringer's (Lactated Ringers Solution) 1,000 ml in 1,000 mls @ 150 mls/ hr IV ASDIR [facility]UCK Stop: 07/13/18 15:00 Last Admin: 07/13/18 09:25 Dose: 150 mls/hr Lactated Ringer's (Lactated Ringers Solution) 1,000 ml in 1,000 mls @ 150 mls/ hr IV ASDIR [facility]UCK Lorazepam (Ativan Injection -) 2 mg IVPUSH TID PRN PRN Reason: ANXIETY Last Admin: 07/13/18 00:48 Dose: 2 mg Ondansetron HCl (Zofran Injection) 4 mg IVPUSH Q6H PRN PRN Reason: NAUSEA Last Admin: 07/12/18 12:57 Dose: 4 mg Valsartan (Diovan -) 160 mg PO DAILY [facility]UCK Last Admin: 07/13/18 10:06 Dose: 160 mg IMAGING: * CTAP: Acute pancreatitis, most marked at head of pancreas; free fluid in peripancreatic region and R anterior pararenal space. Mildly distended GB w/ calculi. Suspected 3 mm calculus within distal CBD. Splenomegaly. * Abd U/S: Mildly distended GB w/ thickened wall and pericholecystic fluid, + Mohan sign. Diffuse fatty infiltration of liver. * ERCP: After an expelled stone was found adjacent to the papilla and bulging in the duodenal wall suggested residual stones a sphincterotomy was performed and another 2 stones were extracted after which the sludge began to flow liberally. * Abd X-ray: No sign of free air. Large heart, and some mild congestive changes and fluid in horizontal fissure. Distended loops of bowel mainly seen in upper abdomen. * CXR: No sign of PTX or pneumoperitoneum. ASSESSMENT/PLAN: 58 y/o M w/ PMHx htn, admitted 07/12 to [place] with ruq/epigastric pain, found to have gallstone pancreatitis/cholelithiasis, transferred to [facility] for ERCP, now s/p ERCP with sphincterotomy/balloon sweeping/removal of calculi. #Acute gallstone pancreatitis; likely 2/2 to cholelithiasis and alcohol use -s/p ERCP- Per GI, after an expelled stone was found adjacent to the papilla and bulging in the duodenal wall suggested residual stones a sphincterotomy was performed and another 2 stones were extracted after which the sludge began to flow liberally -CXR and Abd x-ray noted above; no sign of pneumoperitoneum -NPO, monitor VS, serial abdominal exams -Per GI, d/c off abx for now. Will check CBC in AM. -Lap wesly scheduled for this Wednesday w/ Dr. Aviles #Alcohol abuse -Change to Ativan 1mg Q6H PRN for agitation/withdrawal. Cannot use librium due to elevated liver enzymes #Hypertension-controlled -Cont home med: Valsartan 160 mg PO QD and Amlodipine 10 mg PO QD #FEN -IV LR @ 150mls/hr -Electrolytes to be repeated -NPO #Prophylaxis -For DVT; on SCDs, heparin on hold for surgery -For GI: Not indicated #Dispo -cont to monitor in med-surg -full code Visit type - Emergency Visit Emergency Visit: Yes ED Registration Date: 07/12/18 Care time: The patient presented to the Emergency Department on the above date and was hospitalized for further evaluation of their emergent condition. - New Patient This patient is new to me today: Yes Date on this admission: 07/13/18 - Critical Care Critical Care patient: No
[2018-07-13 14:31] LABS: ANISOCYTOSIS 1+; MACROCYTOSIS 0; PLATELET ESTIMATE NORMAL
[2018-07-13] MEDS: LACTATED RINGERS SOLUTION 1,000 ML/1,000 ML INFUS.BAG IV SCH (15:14)
[2018-07-13] MEDS ORDERED: LORazepam 1 MG TABLET PO PRN (17:28)
--- NOTE | 2018-07-13 17:29 | PN ---
Teaching Attending Note Name of Resident: Terry Mathis ATTENDING PHYSICIAN STATEMENT I saw and evaluated the patient. I reviewed the resident's note and discussed the case with the resident. I agree with the resident's findings and plan as documented. SUBJECTIVE: abd pain, no fever or chills. no N/V . feels better OBJECTIVE: NAD CV: RRR Lungs: CTAB Abd : slightly distended. TTP in RLQ, LLQ. NL BS. Ext : no edema ASSESSMENT AND PLAN: 58 y/o man withh/o ETOH abuse, HTN, and asthma who presented with abd pain and was found to have gall stone pancreatitis . 1- ACute gall stone pancreatitis: s/p ERCP with stone extraction and sphincterectomy . with some degree of ileus - cont IVF - Dr. mendez recommended Abx after procedure. there is no evidence of infection. Now on flagyl. if Abx are needed then will need to add Ceftriaxone. Will d/w Dr. Triplett if abx are really needed . - CCY on Wednesday, d/w Dr. Aviles 2- ETOH abuse : change IV ativan to po and to give only per CIWA 3- HTN: cont Valsartan and norvasc Dispo: HLOC
[2018-07-13] MEDS ORDERED: MAGNESIUM SULF 50% (8.12 MEQ/2 ML-1 GM VIAL) IVPB ONE (17:30)
[2018-07-14] MEDS: HYDROmorphone HCl 2 MG/ML VIAL IVPUSH PRN ×3 (02:18→11:04)
[2018-07-14 07:22] LABS: BASO % 0.2 % (0-2.0); EOS % 0.1 % (0-4.5); HEMATOCRIT 45.6 % (35.4-49); HEMOGLOBIN 15.6 GM/dL (11.7-16.9); LYMPH % 3.3 % (8-40); MCH 32.9 pg (25.7-33.7); MCHC 34.3 g/dl (32.0-35.9); MEAN CELL VOLUME 95.9 fl (80-96); MONO % 5.2 % (3.8-10.2); NEUT % 91.2 % (42.8-82.8); PLATELET COUNT 197 K/MM3 (134-434); RBC 4.76 M/mm3 (4.00-5.60); RDW 12.7 % (11.9-15.9); WHITE BLOOD COUNT 19.8 K/mm3 (4.0-10.0)
[2018-07-14 07:50] LABS: ALBUMIN 2.6 g/dl (3.4-5.0); ALK PHOS 54 U/L (45-117); ANION GAP 8 MMOL/L (8-16); BILIRUBIN,TOTAL 3.3 mg/dL (0.2-1); BLOOD UREA NITROGEN 22 mg/dL (7-18); CALCIUM 8.2 mg/dL (8.5-10.1); CHLORIDE 104 mmol/L (98-107); CO2 26 mmol/L (21-32); GLUCOSE,RANDOM 97 mg/dL (74-106); POTASSIUM 3.7 mmol/L (3.5-5.1); SGOT/AST 28 U/L (15-37); SGPT/ALT 78 U/L (13-61); SODIUM 138 mmol/L (136-145); TOT PROT 5.8 g/dl (6.4-8.2)
[2018-07-14 09:11] LABS: AMYLASE 435 U/L (25-115); LIPASE 1215 U/L (73-393)
--- NOTE | 2018-07-14 09:18 | PN ---
Progress Note (short form) - Note Progress Note: Pt seen and examined. States his belly continues to feel "full and swollen". Reports continued RUQ pain and now back pain (he believes more so on the left side), improved with Dilaudid. Has been oob to the restroom without issue. Denies cp/sob, n/v/d, calf pain/edema. Vital Signs Temp 98.6 F 07/14/18 08:50 Pulse 90 07/14/18 08:50 Resp 18 07/14/18 08:50 BP 141/91 07/14/18 08:50 Pulse Ox 92 L 07/13/18 23:37 Intake & Output 07/13/18 07/13/18 07/14/18 11:59 23:59 11:59 Intake Total 0 1800 Output Total 100 500 Balance -100 -500 1800 Intake: IV 1800 LACTATED RINGERS SOLUTION 1800 1,000 ml In 1,000 ml @ 150 mls/hr IV ASDIR CHUCK Rx#:[id number] Oral 0 Output: Urine 100 500 Void 100 500 Other: Voiding Method Urinal Urinal Bowel Movement No # Bowel Movements 0 CBC, BMP 07/14/18 06:30 07/14/18 06:30 Hepatic Panel Total Bilirubin 3.3 mg/dL (0.2-1) H 07/14/18 06:30 Direct Bilirubin 0.4 mg/dL (0.0-0.2) H 07/13/18 07:30 AST 28 U/L (15-37) 07/14/18 06:30 ALT 78 U/L (13-61) H 07/14/18 06:30 Alkaline Phosphatase 54 U/L (45-117) 07/14/18 06:30 Albumin 2.6 g/dl (3.4-5.0) L 07/14/18 06:30 Gen: awake, alert, nad, laying in bed with RN bedside doing bladder scan (<40ml) Resp: cta b/l CV: rrr, s1s2 Abdomen: distended (slightly moreso than yesterday), soft, +TTP ruq, no rebound/ guarding, hypoactive bowel sounds Ext: b/l calf without edema or pain CXR (07/13/18): No sign of a pneumothorax or pneumoperitoneum AXR (07/13/18): 2 views of the abdomen reveal no sign of free air. There is a large heart, some mild congestive changes and fluid in the horizontal fissure. Free air is seen. There is retained stool. There are distended loops of bowel seen mainly in the upper abdomen and this could be a focal ileus responding to the pancreatitis. A/P: 58 y/o M w/ PMHx htn, admitted 07/12 to [place] with ruq/epigastric pain , found to have gallstone pancreatitis/cholelithiasis, transferred to [facility] yesterday for ERCP, now s/p ERCP with sphincterotomy/balloon sweeping/removal of calculi. Afebrile. VSS, labs reviewed: leukocytosis trending up (19.5k, 19k yesterday) liver enyzmes trending down for the most part, T bilirubin trending down, (3.3) -NPO -Initiate IV abx, ID consult -continue to trend labs -serial abdo exams -Monitor VS -Monitor I&Os -Will follow closely -On OR schedule for lap wesly (Wednesday, 07/15 at 1700) Above janet attending Dr Aviles
[2018-07-14] MEDS ORDERED: PIPERACILLIN/TAZOB 4.5 GM 4.5 GM in DEXTROSE 5%-WATER 100 ML IVPB ONE (09:30)
[2018-07-14] MEDS ORDERED: PIPERACILLIN/TAZOBACTAM 4.5 GM VIAL IVPB ONE (10:02)
[2018-07-14] MEDS ORDERED: DEXTROSE 5%-WATER 100 ML IVPB ONE ×2 (10:03→11:59)
[2018-07-14] MEDS: VALSARTAN 160 MG TABLET (UD) PO SCH (10:08)
[2018-07-14] MEDS: amLODIPine BESYLATE 10 MG TABLET (FP) PO SCH (10:08)
[2018-07-14] MEDS: LACTATED RINGERS SOLUTION 1,000 ML/1,000 ML INFUS.BAG IV SCH ×3 (11:08→23:53)
[2018-07-14] MEDS: ALBUTEROL SO4 0.083% IH SOL 2.5 MG/3 ML VIAL.NEB. NEB SCH ×3 (12:09→20:19)
--- NOTE | 2018-07-14 12:36 | PN ---
Teaching Attending Note Name of Resident: Jasmine Galeana ATTENDING PHYSICIAN STATEMENT I saw and evaluated the patient. I reviewed the resident's note and discussed the case with the resident. I agree with the resident's findings and plan as documented. SUBJECTIVE: No fever or chills. has abd pain, but better . No N/V. tolerated clears , did not pass gas yet OBJECTIVE: NAD CV: RRR Lungs: CTAB Abd: slightly distended. NT, NL BS, tympanic Ext: no edema ASSESSMENT AND PLAN: 58 y/o man withh/o ETOH abuse, HTN, and asthma who presented with abd pain and was found to have gall stone pancreatitis . 1- Acute gall stone pancreatitis: s/p ERCP with stone extraction and sphincterectomy . with some degree of ileus - cont IVF - clears - Persistent leukocytosis. will give Ceftriaxone and flagyl ( rash ith PCN ) . will consult ID - CCY on Wednesday, d/w Dr. Aviles - dc dilaudid and place on PRN oxycodone 2- ETOH abuse : PO ativan only per CIWA 3- HTN: cont Valsartan and norvasc Dispo: HLOC d/w patient and mom at bed side
[2018-07-14] MEDS: CEFTRIAXONE 2 GM in DEXTROSE 5%-WATER 100 ML IVPB SCH (13:36)
--- NOTE | 2018-07-14 13:58 | PN ---
GI Progress Note Subjective: Comaplins of abdominal distention. lower back pain Abdominal pain overall improved - Objective Vital Signs: Vital Signs Temperature 98.6 F 07/14/18 08:50 Pulse Rate 90 07/14/18 08:50 Respiratory Rate 18 07/14/18 08:50 Blood Pressure 141/91 07/14/18 08:50 O2 Sat by Pulse Oximetry (%) 96 07/14/18 09:00 Constitutional: Calm Eyes: No: Sclera Icterus Cardiovascular: Yes: Regular Rate and Rhythm Respiratory: Yes: Rhonchi (left lung base), Wheezes (bilateral expiratory wheezes) Gastrointestinal Inspection: Yes: Distention. No: Scars ...Auscultate: Yes: Normoactive Bowel Sounds ...Palpate: Yes: Tenderness (Mild TTP mid abdomen). No: Guarding, Tenderness, Rebound ...Percussion: Yes: Tympanitic (Tympany, mid abdomen) Edema: No (No LE edema) Neurological: Yes: Alert Labs: CBC, BMP 07/14/18 06:30 07/14/18 06:30 INR, PTT INR 0.95 (0.83-1.09) 07/12/18 05:41 Hepatic Panel Total Bilirubin 3.3 mg/dL (0.2-1) H 07/14/18 06:30 Direct Bilirubin 0.4 mg/dL (0.0-0.2) H 07/13/18 07:30 AST 28 U/L (15-37) 07/14/18 06:30 ALT 78 U/L (13-61) H 07/14/18 06:30 Alkaline Phosphatase 54 U/L (45-117) 07/14/18 06:30 Albumin 2.6 g/dl (3.4-5.0) L 07/14/18 06:30 Problem List - Problems (1) Gallstone pancreatitis Assessment/Plan: S/P ERCP with CBD stone extractions Rising WBC: ? alternate etiology, ? lung source, ? related to pancreatitis - Clear liquids - Ordered CT scan of the abdomen/pelvis with IV contrast to assess for developing fluid collections - Abx per ID Code(s): K85.10 - BILIARY ACUTE PANCREATITIS WITHOUT NECROSIS OR INFECTION
--- NOTE | 2018-07-14 15:19 | PN ---
Progress Note (short form) - Note Progress Note: ID Consult dictated Fever/ leukocytosis ? secondary to pancreatitis ? residual biliary tract disease Probable ileus secondary to pancreatitis Reculture Repeat CT abdomen /pelvis Continue empiric ceftriaxone/ flagyl
--- NOTE | 2018-07-14 15:39 | CONS ---
DATE OF CONSULTATION: DATE OF DICTATION: 07/14/2018 INFECTIOUS DISEASE CONSULTATION HISTORY OF PRESENT ILLNESS: The patient is a 58-year-old male evaluated for fever and leukocytosis. He was admitted to the hospital on July 12, 2018 with complaints of abdominal pain, nausea and vomiting. On admission a CAT scan was performed of his abdomen and pelvis and showed acute pancreatitis as well as a distended gallbladder with stones and a 3-mm common bile duct stone. The patient underwent an ERCP with sphincterotomy on . He is scheduled to have a laparoscopic cholecystectomy tomorrow. His course has not been complicated by increasing abdominal distension. The patient feels bloated and is unable to have a bowel movement or pass flatus. He denies any recurrent nausea or vomiting. He has had a low-grade fever and white blood cell count is elevated. He denies any chest pain, shortness of breath, cough or sputum production. No complaints of dysuria or hematuria. PAST MEDICAL HISTORY: Positive for asthma and hypertension. PAST SURGICAL HISTORY: Status post appendectomy and hernia repair. ALLERGIES: To PENICILLIN. The patient developed a rash years ago. No history of anaphylaxis. SOCIAL HISTORY: He resides in the community. He reports daily alcohol consumption. SYSTEMS REVIEW: Neurologic: No loss of consciousness, seizure activity or focal weakness. Cardiac: Negative chest pain to palpitations. Respiratory: Negative cough or sputum production. Gastrointestinal: As per HPI. Genitourinary: Negative for urinary tract infection. LABORATORY DATA: White count 19.8, 92 neutrophiles, 3 lymphocytes, 5 monocytes, hematocrit 45.6, platelet count 197. BUN 22, creatinine 1.0, total bilirubin 3.3, alkaline phosphatase 54, AST 28. Urinalysis 1 white cell. Lipase 1215. Blood cultures negative. Chest x-ray shows atelectasis. PHYSICAL EXAMINATION: General: He is supine in bed in no acute distress. Vital Signs: Temperature 98.6, Tmax 99.7, blood pressure 149/91, pulse 80 and regular, respirations 20 per minute. HEENT: Sclerae anicteric. Heart: Sounds S1, S2. Lungs: Clear bilaterally. Abdomen: Distended. There are no appreciable bowel sounds. It is tympanitic. No tenderness elicited. No mass, rebound or rigidity. Extremities: Negative for edema. IMPRESSION: Low grade fever, leukocytosis of several potential sources including resolving pancreatitis, possible residual biliary tract disease, possible lung source, suspect ileus on the basis of pancreatitis. Would reculture. The patient is for followup CAT scan of the abdomen and pelvis today. Agree with empiric coverage of biliary tract and lung pathogens with ceftriaxone and Flagyl pending sepsis workup. Thank you for the kind referral. MELVA HUFFMAN M.D. [id number]
[2018-07-14] MEDS: oxyCODONE HCL 5 MG TABLET PO PRN ×2 (16:32→23:48)
--- NOTE | 2018-07-14 19:53 | PN ---
Physical Exam: SUBJECTIVE: Patient seen and examined at bedside. NO acute events overnight. OBJECTIVE: Vital Signs Temperature 98.6 F 07/14/18 08:50 Pulse Rate 90 07/14/18 08:50 Respiratory Rate 18 07/14/18 08:50 Blood Pressure 141/91 07/14/18 08:50 O2 Sat by Pulse Oximetry (%) 96 07/14/18 09:00 GENERAL: AAOx3. HEENT: AT/NC. EOMI. Moist mucus membranes. NECK: Supple. LUNGS: B/L breath sounds equal HEART: RRR. Normal S1, S2. No murmurs noted. ABDOMEN: Soft, Mohan's sign positive, tenderness on the right upper quadrant and epigastric area, BS+. +Distension MUSCULOSKELETAL: Normal range of motion at all joints. No bony deformities or tenderness. No CVA tenderness. EXTREMITIES: 2+ dorsalis pedis pulses b/l. NEUROLOGICAL: No facial droop. Muscle strength 5/5 in all extremities, no tremors. Normal speech. Gait not observed. PSYCHIATRIC: Cooperative. Good eye contact. Appropriate mood and affect. SKIN: Warm, dry, normal turgor, no rashes or lesions noted, normal capillary refill. CBC, BMP 07/14/18 06:30 07/14/18 06:30 Active Medications Albuterol Sulfate (Ventolin 0.083% Nebulizer Soln -) 1 amp NEB RQID [facility] Last Admin: 07/14/18 16:30 Dose: Not Given Amlodipine Besylate (Norvasc -) 10 mg PO DAILY [facility] Last Admin: 07/14/18 10:08 Dose: 10 mg Ceftriaxone Sodium 2 gm/ (Dextrose) 100 mls @ 100 mls/hr IVPB DAILY [facility]; Protocol Last Admin: 07/14/18 13:36 Dose: 100 mls/hr Metronidazole (Flagyl 500mg Premixed Ivpb -) 500 mg in 100 mls @ 100 mls/hr IVPB Q6H-IV [facility] Last Admin: 07/14/18 14:47 Dose: Not Given Lactated Ringer's (Lactated Ringers Solution) 1,000 ml in 1,000 mls @ 100 mls/ hr IV ASDIR [facility] Last Admin: 07/14/18 12:02 Dose: 100 mls/hr Lorazepam (Ativan -) 1 mg PO Q6H PRN PRN Reason: WITHDRAWAL(CONT SUBST) Ondansetron HCl (Zofran Injection) 4 mg IVPUSH Q6H PRN PRN Reason: NAUSEA Last Admin: 07/12/18 12:57 Dose: 4 mg Oxycodone HCl (Roxicodone -) 5 mg PO Q6H PRN PRN Reason: PAIN LEVEL 6-10 Last Admin: 07/14/18 16:32 Dose: 5 mg Valsartan (Diovan -) 160 mg PO DAILY CHUCK Last Admin: 07/14/18 10:08 Dose: 160 mg IMAGING: * CTAP: Acute pancreatitis, most marked at head of pancreas; free fluid in peripancreatic region and R anterior pararenal space. Mildly distended GB w/ calculi. Suspected 3 mm calculus within distal CBD. Splenomegaly. * Abd U/S: Mildly distended GB w/ thickened wall and pericholecystic fluid, + Mohan sign. Diffuse fatty infiltration of liver. * ERCP: After an expelled stone was found adjacent to the papilla and bulging in the duodenal wall suggested residual stones a sphincterotomy was performed and another 2 stones were extracted after which the sludge began to flow liberally. * Abd X-ray: No sign of free air. Large heart, and some mild congestive changes and fluid in horizontal fissure. Distended loops of bowel mainly seen in upper abdomen. * CXR: No sign of PTX or pneumoperitoneum. ASSESSMENT/PLAN: 58 y/o M w/ PMHx htn, admitted 07/12 to [place] with ruq/epigastric pain, found to have gallstone pancreatitis/cholelithiasis, transferred to [facility] for ERCP, now s/p ERCP with sphincterotomy/balloon sweeping/removal of calculi. #Acute gallstone pancreatitis; likely 2/2 to cholelithiasis and alcohol use -s/p ERCP- Per GI, after an expelled stone was found adjacent to the papilla and bulging in the duodenal wall suggested residual stones a sphincterotomy was performed and another 2 stones were extracted after which the sludge began to flow liberally -CXR and Abd x-ray noted above; no sign of pneumoperitoneum -NPO at midnight, monitor VS, serial abdominal exams -Flagyl 500, Ceftriaxone 2 gm -Lap wesly scheduled for this Wednesday w/ Dr. Aviles -Oxy PRN for pain #Alcohol abuse -Change to Ativan 1mg Q6H PRN for agitation/withdrawal. Cannot use librium due to elevated liver enzymes #Hypertension-controlled -Cont home med: Valsartan 160 mg PO QD and Amlodipine 10 mg PO QD #FEN -IV LR @ 150mls/hr -Electrolytes to be repeated -NPO #Prophylaxis -For DVT; on SCDs, heparin on hold for surgery -For GI: Not indicated #Dispo -cont to monitor in med-surg -full code Visit type - Emergency Visit Emergency Visit: Yes ED Registration Date: 07/12/18 Care time: The patient presented to the Emergency Department on the above date and was hospitalized for further evaluation of their emergent condition. - New Patient This patient is new to me today: No - Critical Care Critical Care patient: No
[2018-07-15] MEDS: ALBUTEROL SO4 0.083% IH SOL 2.5 MG/3 ML VIAL.NEB. NEB SCH ×4 (07:15→20:55)
[2018-07-15 07:27] LABS: BASO % 0.2 % (0-2.0); EOS % 0.4 % (0-4.5); HEMATOCRIT 41.6 % (35.4-49); HEMOGLOBIN 14.6 GM/dL (11.7-16.9); LYMPH % 3.6 % (8-40); MCH 33.5 pg (25.7-33.7); MCHC 35.2 g/dl (32.0-35.9); MEAN CELL VOLUME 95.2 fl (80-96); MEAN PLT VOLUME 7.8 fl (7.5-11.1); MONO % 6.6 % (3.8-10.2); NEUT % 89.2 % (42.8-82.8); PLATELET COUNT 208 K/MM3 (134-434); RBC 4.37 M/mm3 (4.00-5.60); RDW 12.6 % (11.9-15.9); WHITE BLOOD COUNT 15.5 K/mm3 (4.0-10.0)
[2018-07-15 07:36] LABS: INR 1.21 (0.83-1.09); PROTHROMBIN TIME (PATIENT) 14.3 SEC (9.7-13.0)
[2018-07-15] MEDS: oxyCODONE HCL 5 MG TABLET PO PRN ×3 (07:53→19:51)
[2018-07-15 08:31] LABS: ALBUMIN 2.5 g/dl (3.4-5.0); ALK PHOS 56 U/L (45-117); AMYLASE 170 U/L (25-115); ANION GAP 11 MMOL/L (8-16); BILIRUBIN,TOTAL 2.3 mg/dL (0.2-1); BLOOD UREA NITROGEN 21 mg/dL (7-18); CALCIUM 7.7 mg/dL (8.5-10.1); CHLORIDE 104 mmol/L (98-107); CO2 26 mmol/L (21-32); CREATININE 0.9 mg/dL (0.55-1.3); GLUCOSE,RANDOM 88 mg/dL (74-106); LIPASE 410 U/L (73-393); POTASSIUM 3.3 mmol/L (3.5-5.1); SGOT/AST 18 U/L (15-37); SGPT/ALT 49 U/L (13-61); SODIUM 141 mmol/L (136-145); TOT PROT 5.9 g/dl (6.4-8.2)
[2018-07-15] MEDS ORDERED: DEXTROSE 5%-WATER 100 ML IVPB ONE (09:14)
[2018-07-15] MEDS: VALSARTAN 160 MG TABLET (UD) PO SCH (09:16)
[2018-07-15] MEDS: amLODIPine BESYLATE 10 MG TABLET (FP) PO SCH (09:16)
--- NOTE | 2018-07-15 09:52 | PN ---
Progress Note (short form) - Note Progress Note: Patient with GS Pancreatitis. CT A/P 07/14 --> increased pancreatic parenchymal swelling as well as increased peripancreatic fluid consistent w/ pancreatitis. SB distension consistent w/ ileus. Based on above findings, we feel is prudent that the patient that his pancreatitis resolves prior too surgery. Case canceled for today and will re- schedule 07/18/18. Cont to trend LFTs and Amylase/Lipase Medical optimization. Above discussed with Dr. Aviles and agrees.
[2018-07-15] MEDS: CEFTRIAXONE 2 GM in DEXTROSE 5%-WATER 100 ML IVPB SCH (10:27)
--- NOTE | 2018-07-15 12:35 | PN ---
GI Progress Note Subjective: No acute events Found sitting up reading Still feels full. No BM as of yet - Objective Vital Signs: Vital Signs Temperature 99.1 F 07/15/18 09:17 Pulse Rate 99 H 07/15/18 09:17 Respiratory Rate 18 07/15/18 09:17 Blood Pressure 147/95 07/15/18 09:17 O2 Sat by Pulse Oximetry (%) 92 L 07/15/18 09:00 Constitutional: Calm Eyes: No: Sclera Icterus Cardiovascular: Yes: Regular Rate and Rhythm Respiratory: Yes: Diminished (at bases bilaterally) Gastrointestinal Inspection: No: Scars ...Auscultate: Yes: Normoactive Bowel Sounds ...Palpate: Yes: Soft. No: Hepatomegaly, Splenomegaly, Tenderness ...Percussion: Yes: Tympanitic (mid abdomen). No: Fluid Wave Edema: No (No LE edema) Neurological: Yes: Alert Labs: CBC, BMP 07/15/18 06:40 07/15/18 06:40 INR, PTT INR 1.21 (0.83-1.09) H 07/15/18 06:40 Hepatic Panel Total Bilirubin 2.3 mg/dL (0.2-1) H 07/15/18 06:40 Direct Bilirubin 0.4 mg/dL (0.0-0.2) H 07/13/18 07:30 AST 18 U/L (15-37) 07/15/18 06:40 ALT 49 U/L (13-61) 07/15/18 06:40 Alkaline Phosphatase 56 U/L (45-117) 07/15/18 06:40 Albumin 2.5 g/dl (3.4-5.0) L 07/15/18 06:40 Problem List - Problems (1) Gallstone pancreatitis Assessment/Plan: Clinically improved. Still with persistent ileus, likely secondary to pancreatitis and exacerbated by ERCP air insufflation Surgery to decide on timing of Lap Amira Continue supportive measures. If not having surgery, advance to clears Continue to titrate IV hydration down if continued clinical improvement Code(s): K85.10 - BILIARY ACUTE PANCREATITIS WITHOUT NECROSIS OR INFECTION
[2018-07-15] MEDS: LACTATED RINGERS SOLUTION 1,000 ML/1,000 ML INFUS.BAG IV SCH (12:53)
[2018-07-15] MEDS ORDERED: PT OWN MED DRAWER 7, Y5N ONE (13:31)
[2018-07-15] MEDS: ENOXAPARIN NA (PORCINE) 40 MG/0.4 ML DISP.SYRIN SQ SCH (14:02)
--- NOTE | 2018-07-15 14:07 | PN ---
Physical Exam: SUBJECTIVE: Patient seen and examined at bedside. Seen resting comfortably in bed. Still complains of distension, -flatus, -BM. Denies chest pain, sob, n/v, urinary symptoms. OBJECTIVE: Vital Signs Temperature 99.1 F 07/15/18 09:17 Pulse Rate 99 H 07/15/18 09:17 Respiratory Rate 18 07/15/18 09:17 Blood Pressure 147/95 07/15/18 09:17 O2 Sat by Pulse Oximetry (%) 92 L 07/15/18 09:00 GENERAL: AAOx3. HEENT: AT/NC. EOMI. Moist mucus membranes. NECK: Supple. LUNGS: B/L breath sounds equal HEART: RRR. Normal S1, S2. No murmurs noted. ABDOMEN: Soft, tenderness on the right upper quadrant and epigastric area, BS+. +Distension MUSCULOSKELETAL: Normal range of motion at all joints. No bony deformities or tenderness. No CVA tenderness. EXTREMITIES: 2+ dorsalis pedis pulses b/l. NEUROLOGICAL: No facial droop. Muscle strength 5/5 in all extremities, no tremors. Normal speech. Gait not observed. PSYCHIATRIC: Cooperative. Good eye contact. Appropriate mood and affect. SKIN: Warm, dry, normal turgor, no rashes or lesions noted, normal capillary refill. Laboratory Results - last 24 hr 07/15/18 07/15/18 07/15/18 06:40 06:40 06:40 WBC 15.5 H RBC 4.37 Hgb 14.6 Hct 41.6 MCV 95.2 MCH 33.5 MCHC 35.2 RDW 12.6 Plt Count 208 MPV 7.8 Absolute Neuts (auto) 13.9 H Neutrophils % 89.2 H Lymphocytes % 3.6 L Monocytes % 6.6 Eosinophils % 0.4 D Basophils % 0.2 Nucleated RBC % 0 PT with INR 14.30 H INR 1.21 H PTT (Actin FS) 31.0 Sodium 141 Potassium 3.3 L Chloride 104 Carbon Dioxide 26 Anion Gap 11 BUN 21 H Creatinine 0.9 Creat Clearance w eGFR > 60 Random Glucose 88 Calcium 7.7 L Total Bilirubin 2.3 H AST 18 ALT 49 Alkaline Phosphatase 56 Total Protein 5.9 L Albumin 2.5 L Total Amylase 170 H Lipase 410 H Active Medications Albuterol Sulfate (Ventolin 0.083% Nebulizer Soln -) 1 amp NEB RQID [facility] Last Admin: 07/15/18 11:19 Dose: Not Given Amlodipine Besylate (Norvasc -) 10 mg PO DAILY [facility] Last Admin: 07/15/18 09:16 Dose: 10 mg Enoxaparin Sodium (Lovenox -) 40 mg SQ DAILY CHUCK Ceftriaxone Sodium 2 gm/ (Dextrose) 100 mls @ 100 mls/hr IVPB DAILY [facility]; Protocol Last Admin: 07/15/18 10:27 Dose: 100 mls/hr Metronidazole (Flagyl 500mg Premixed Ivpb -) 500 mg in 100 mls @ 100 mls/hr IVPB Q6H-IV CHUCK Last Admin: 07/15/18 09:16 Dose: 100 mls/hr Lactated Ringer's (Lactated Ringers Solution) 1,000 ml in 1,000 mls @ 100 mls/ hr IV ASDIR [facility] Last Admin: 07/15/18 12:53 Dose: 100 mls/hr Lorazepam (Ativan -) 1 mg PO Q6H PRN PRN Reason: WITHDRAWAL(CONT SUBST) Last Admin: 07/15/18 00:41 Dose: 1 mg Ondansetron HCl (Zofran Injection) 4 mg IVPUSH Q6H PRN PRN Reason: NAUSEA Last Admin: 07/12/18 12:57 Dose: 4 mg Oxycodone HCl (Roxicodone -) 5 mg PO Q6H PRN PRN Reason: PAIN LEVEL 6-10 Last Admin: 07/15/18 13:08 Dose: 5 mg Valsartan (Diovan -) 160 mg PO DAILY [facility] Last Admin: 07/15/18 09:16 Dose: 160 mg CONSULT Surgery- Dr. Aviles GI- Dr. Snell IMAGING: * CTAP: Acute pancreatitis, most marked at head of pancreas; free fluid in peripancreatic region and R anterior pararenal space. Mildly distended GB w/ calculi. Suspected 3 mm calculus within distal CBD. Splenomegaly. * Abd U/S: Mildly distended GB w/ thickened wall and pericholecystic fluid, + Mohan sign. Diffuse fatty infiltration of liver. * ERCP: After an expelled stone was found adjacent to the papilla and bulging in the duodenal wall suggested residual stones a sphincterotomy was performed and another 2 stones were extracted after which the sludge began to flow liberally. * Abd X-ray: No sign of free air. Large heart, and some mild congestive changes and fluid in horizontal fissure. Distended loops of bowel mainly seen in upper abdomen. * CXR: No sign of PTX or pneumoperitoneum. * CTAP (07/14): increased pancreatic parenchymal swelling as well as increased peripancreatic fluid consistent w/ pancreatitis. SB distension consistent w/ ileus. ASSESSMENT/PLAN: 58 y/o M w/ PMHx htn, admitted 07/12 to [place] with ruq/epigastric pain, found to have gallstone pancreatitis/cholelithiasis, transferred to [facility] for ERCP, now s/p ERCP with sphincterotomy/balloon sweeping/removal of calculi. #Acute gallstone pancreatitis; likely 2/2 to cholelithiasis and alcohol use -s/p ERCP- Per GI, after an expelled stone was found adjacent to the papilla and bulging in the duodenal wall suggested residual stones a sphincterotomy was performed and another 2 stones were extracted after which the sludge began to flow liberally -CXR and Abd x-ray noted above; no sign of pneumoperitoneum -Ceftriaxone 2 gm; Flagyl 500 mg IVPB Q6H -Per surg, pancreatitis likely improving prior to surgery, lap wesly canceled for today and will be scheduled to 07/18/18 pending pt's clinical status. Will start on CLD and monitor. -Cont to trend LFTs and amylase/lipase -Oxy 5 mg PO Q6H PRN for pain #Alcohol abuse -Ativan 1mg Q6H PRN for agitation/withdrawal. Cannot use Librium due to elevated liver enzymes #Hypertension-controlled -Cont home med: Valsartan 160 mg PO QD and Amlodipine 10 mg PO QD #FEN -IV LR @ 150mls/hr -Electrolytes to be repeated -CLD #Prophylaxis -For DVT; on SCDs, Lovenox 40 mg SQ QD -For GI: Not indicated #Dispo -cont to monitor in med-surg -full code Visit type - Emergency Visit Emergency Visit: Yes ED Registration Date: 07/12/18 Care time: The patient presented to the Emergency Department on the above date and was hospitalized for further evaluation of their emergent condition. - New Patient This patient is new to me today: No - Critical Care Critical Care patient: No
--- NOTE | 2018-07-15 18:39 | PN ---
Teaching Attending Note Name of Resident: Jasmine Galeana ATTENDING PHYSICIAN STATEMENT I saw and evaluated the patient. I reviewed the resident's note and discussed the case with the resident. I agree with the resident's findings and plan as documented. SUBJECTIVE: No fever or chills. denies abd pain. did not pass gas yet. no BMs . OBJECTIVE: NAD CV: RRR Lungs: CTAB Abd: More distended compared to yesterday . NT, NL BS, tympanic Ext: no edema ASSESSMENT AND PLAN: 58 y/o man with h/o ETOH abuse, HTN, and asthma who presented with abd pain and was found to have gall stone pancreatitis . 1- Acute gall stone pancreatitis: s/p ERCP with stone extraction and sphincterectomy. Ileus is worse today, and still no flatus or BM - cont IVF - d/w dr. Aviles that ileus is worses. hence, surgical procedure was cancelled - cont CTX and flagyl - resume clears 2- ETOH abuse: PO ativan only per CIWA . 3- HTN: cont Valsartan and norvasc Dispo: OC
[2018-07-16] MEDS: oxyCODONE HCL 5 MG TABLET PO PRN ×2 (02:19→14:14)
[2018-07-16 07:14] LABS: ALBUMIN 2.1 g/dl (3.4-5.0); ALK PHOS 49 U/L (45-117); AMYLASE 100 U/L (25-115); ANION GAP 10 MMOL/L (8-16); BILIRUBIN,TOTAL 1.3 mg/dL (0.2-1); BLOOD UREA NITROGEN 21 mg/dL (7-18); CALCIUM 7.6 mg/dL (8.5-10.1); CHLORIDE 105 mmol/L (98-107); CO2 25 mmol/L (21-32); CREATININE 0.8 mg/dL (0.55-1.3); GLUCOSE,RANDOM 90 mg/dL (74-106); LIPASE 259 U/L (73-393); SGOT/AST 11 U/L (15-37); SGPT/ALT 32 U/L (13-61); SODIUM 141 mmol/L (136-145); TOT PROT 5.3 g/dl (6.4-8.2)
[2018-07-16] MEDS: ALBUTEROL SO4 0.083% IH SOL 2.5 MG/3 ML VIAL.NEB. NEB SCH ×4 (07:20→20:45)
[2018-07-16 07:21] LABS: HEMATOCRIT 39.3 % (35.4-49); HEMOGLOBIN 13.8 GM/dL (11.7-16.9); MCH 33.3 pg (25.7-33.7); MCHC 35.2 g/dl (32.0-35.9); MEAN CELL VOLUME 94.5 fl (80-96); MEAN PLT VOLUME 7.8 fl (7.5-11.1); PLATELET COUNT 221 K/MM3 (134-434); RBC 4.16 M/mm3 (4.00-5.60); RDW 12.5 % (11.9-15.9); WHITE BLOOD COUNT 15.5 K/mm3 (4.0-10.0)
[2018-07-16] MEDS ORDERED: POTASSIUM CHLORIDE TABS 20 MEQ TABLET.ER (FP) PO ONE (07:56)
[2018-07-16] MEDS ORDERED: DEXTROSE 5%-WATER 100 ML IVPB ONE (09:00)
[2018-07-16] MEDS: VALSARTAN 160 MG TABLET (UD) PO SCH (09:01)
[2018-07-16] MEDS: amLODIPine BESYLATE 10 MG TABLET (FP) PO SCH (09:01)
[2018-07-16] MEDS: ENOXAPARIN NA (PORCINE) 40 MG/0.4 ML DISP.SYRIN SQ SCH (09:01)
[2018-07-16] MEDS: LACTATED RINGERS SOLUTION 1,000 ML/1,000 ML INFUS.BAG IV SCH ×2 (10:12→18:53)
[2018-07-16] MEDS: CEFTRIAXONE 2 GM in DEXTROSE 5%-WATER 100 ML IVPB SCH (11:29)
--- NOTE | 2018-07-16 13:04 | PN ---
Physical Exam: SUBJECTIVE: Patient seen and examined at bedside. 2 BM last night green and non- bloody. No abdominal pain, tolerating CLD. OBJECTIVE: Vital Signs Period Temp Pulse Resp BP Sys/Almaguer Pulse Ox Last 24 Hr 98.4 F-99.1 F 96-106 18-20 118-139/80-96 96 GENERAL: A&Ox3, no acute distress EYES: PERRLA, EOMI ENT: Moist mucus membranes NECK: No JVD LUNGS: CTA, no wheezes HEART: RRR, no murmurs ABDOMEN: Soft, nontender, BS present, +distention MUSCULOSKELETAL: No CVA Tenderness EXTREMITIES: 2+ pulses, no edema. NEUROLOGICAL: Cranial nerves II-XII intact. Laboratory Results - last 24 hr 07/16/18 07/16/18 06:00 06:00 WBC 15.5 H RBC 4.16 Hgb 13.8 Hct 39.3 MCV 94.5 MCH 33.3 MCHC 35.2 RDW 12.5 Plt Count 221 MPV 7.8 Sodium 141 Potassium 3.0 L Chloride 105 Carbon Dioxide 25 Anion Gap 10 BUN 21 H Creatinine 0.8 Creat Clearance w eGFR > 60 Random Glucose 90 Calcium 7.6 L Total Bilirubin 1.3 H AST 11 L ALT 32 Alkaline Phosphatase 49 Total Protein 5.3 L Albumin 2.1 L Total Amylase 100 Lipase 259 Active Medications Generic Name Dose Route Start Last Admin Trade Name Freq PRN Reason Stop Dose Admin Albuterol Sulfate 1 amp 07/14/18 12:00 07/16/18 11:02 Ventolin 0.083% Nebulizer Soln - NEB Not Given RQID CHUCK Amlodipine Besylate 10 mg 07/13/18 10:00 07/16/18 09:01 Norvasc - PO 10 mg DAILY CHUCK Administration Enoxaparin Sodium 40 mg 07/15/18 13:30 07/16/18 09:01 Lovenox - SQ 40 mg DAILY CHUCK Administration Ceftriaxone Sodium 2 gm/ 100 mls @ 100 mls/hr 07/14/18 11:30 07/16/18 11:29 Dextrose IVPB 100 mls/hr DAILY CHUCK Administration Protocol Metronidazole 500 mg in 100 mls @ 100 mls/hr 07/14/18 11:15 07/16/18 08:57 Flagyl 500mg Premixed Ivpb - IVPB 100 mls/hr Q6H-IV CHUCK Administration Lactated Ringer's 1,000 ml in 1,000 mls @ 75 mls/hr 07/16/18 10:34 07/16/18 10:12 Lactated Ringers Solution IV 75 mls/hr ASDIR CHUCK Administration Lorazepam 1 mg 07/13/18 17:28 07/15/18 00:41 Ativan - PO 1 mg Q6H PRN Administration WITHDRAWAL(CONT SUBST) Ondansetron HCl 4 mg 07/12/18 08:34 07/12/18 12:57 Zofran Injection IVPUSH 4 mg Q6H PRN Administration NAUSEA Oxycodone HCl 5 mg 07/14/18 11:24 07/16/18 02:19 Roxicodone - PO 5 mg Q6H PRN Administration PAIN LEVEL 6-10 Valsartan 160 mg 07/13/18 10:00 07/16/18 09:01 Diovan - PO 160 mg DAILY CHUCK Administration ASSESSMENT/PLAN: 58 y/o M w/ PMHx htn, admitted 07/12 to [place] with ruq/epigastric pain, found to have gallstone pancreatitis/cholelithiasis, transferred to [facility] for ERCP, now s/p ERCP with sphincterotomy/balloon sweeping/removal of calculi. #Acute gallstone pancreatitis; likely 2/2 to cholelithiasis and alcohol use -s/p ERCP -continue Ceftriaxone 2 gm; Flagyl 500 mg IVPB Q6H -Per surg, pancreatitis likely improving prior to surgery, lap wesly canceled for today and will be scheduled to 07/18/18 pending pt's clinical status. Monitor on CLD -Cont to trend LFTs and amylase/lipase -Oxy 5 mg PO Q6H PRN for pain #Alcohol abuse -Ativan 1mg Q6H PRN for agitation/withdrawal. Cannot use Librium due to elevated liver enzymes #Hypertension-controlled -Cont home med: Valsartan 160 mg PO QD and Amlodipine 10 mg PO QD #FEN -IV LR @ 150mls/hr -Electrolytes to be repeated -CLD #Prophylaxis -For DVT; on SCDs, Lovenox 40 mg SQ QD -For GI: Not indicated #Dispo -cont to monitor in med-surg -full code Visit type - Emergency Visit Emergency Visit: No - New Patient This patient is new to me today: No - Critical Care Critical Care patient: No
--- NOTE | 2018-07-16 13:53 | PN ---
Teaching Attending Note Name of Resident: Terry Mathis ATTENDING PHYSICIAN STATEMENT I saw and evaluated the patient. I reviewed the resident's note and discussed the case with the resident. I agree with the resident's findings and plan as documented. SUBJECTIVE: no abd pain, had 2 liquidy BMs yesterday OBJECTIVE: NAD CV: RRR Lungs: minimal scattered wheezes and minimal cough with exam Abd:less distended compared to yesterday . NT, NL BS, tympanic Ext: no edema ASSESSMENT AND PLAN: 58 y/o man with h/o ETOH abuse, HTN, and asthma who presented with abd pain and was found to have gall stone pancreatitis . 1- Acute gall stone pancreatitis: s/p ERCP with stone extraction and sphincterectomy. - cont but decrease IVF due to wheezing and cough - CCY on Wednesday - cont CTX and flagyl - advance diet. - decrease dose of oxycodone 2- ETOH abuse: Dc ativan 3- HTN: cont Valsartan and norvasc Dispo: HLOC ASSESSMENT AND PLAN:
[2018-07-16] MEDS ORDERED: oxyCODONE HCL 5 MG TABLET PO PRN (15:20)
[2018-07-16] MEDS ORDERED: ZOLPIDEM TARTRATE 5 MG TABLET PO ONE (23:52)
[2018-07-17] MEDS ORDERED: PT OWN MED DRAWER 7, Y5N ONE (01:07)
[2018-07-17] MEDS ORDERED: ACETAMINOPHEN 325 MG TABLET (FP) PO ONE (03:37)
[2018-07-17] MEDS: ALBUTEROL SO4 0.083% IH SOL 2.5 MG/3 ML VIAL.NEB. NEB SCH ×4 (07:51→20:18)
[2018-07-17 07:55] LABS: ALBUMIN 2.4 g/dl (3.4-5.0); ALK PHOS 59 U/L (45-117); ANION GAP 8 MMOL/L (8-16); BILIRUBIN,TOTAL 1.1 mg/dL (0.2-1); BLOOD UREA NITROGEN 15 mg/dL (7-18); CALCIUM 7.7 mg/dL (8.5-10.1); CHLORIDE 104 mmol/L (98-107); CO2 26 mmol/L (21-32); CREATININE 0.8 mg/dL (0.55-1.3); GLUCOSE,RANDOM 99 mg/dL (74-106); LIPASE 252 U/L (73-393); PHOSPHOROUS 2.5 mg/dL (2.5-4.9); POTASSIUM 3.1 mmol/L (3.5-5.1); SGOT/AST 10 U/L (15-37); SGPT/ALT 28 U/L (13-61); SODIUM 138 mmol/L (136-145); TOT PROT 6.2 g/dl (6.4-8.2)
[2018-07-17 08:18] LABS: MCH 32.9 pg (25.7-33.7); MCHC 34.8 g/dl (32.0-35.9); MEAN CELL VOLUME 94.5 fl (80-96); MEAN PLT VOLUME 8.1 fl (7.5-11.1); PLATELET COUNT 258 K/MM3 (134-434); RBC 4.55 M/mm3 (4.00-5.60); RDW 12.5 % (11.9-15.9); WHITE BLOOD COUNT 17.6 K/mm3 (4.0-10.0)
[2018-07-17] MEDS ORDERED: DEXTROSE 5%-WATER 100 ML IVPB ONE (09:48)
[2018-07-17] MEDS: amLODIPine BESYLATE 10 MG TABLET (FP) PO SCH (09:58)
[2018-07-17] MEDS: ENOXAPARIN NA (PORCINE) 40 MG/0.4 ML DISP.SYRIN SQ SCH (09:58)
[2018-07-17] MEDS: CEFTRIAXONE 2 GM in DEXTROSE 5%-WATER 100 ML IVPB SCH (09:58)
[2018-07-17] MEDS: VALSARTAN 160 MG TABLET (UD) PO SCH (09:59)
[2018-07-17 11:53] LABS: MAGNESIUM 2.2 mg/dL (1.8-2.4)
[2018-07-17] MEDS ORDERED: ACETAMINOPHEN 325 MG TABLET (FP) PO PRN (13:51)
--- NOTE | 2018-07-17 13:58 | PN ---
Progress Note (short form) - Note Progress Note: Subjective: no abd pain at time of evaluation . per RN his pain is not responding to 2.5 mg of oxycodone. had 2 liquidy BMs. Objective: Vital Signs: Last Vital Signs Temp Pulse Resp BP Pulse Ox 98.3 F 93 H 20 148/89 96 07/17/18 05:45 07/17/18 05:45 07/17/18 09:00 07/17/18 05:45 07/17/18 09:00 Laboratory Results - last 24 hr 07/17/18 07/17/18 07/17/18 06:00 06:00 07:00 WBC 17.6 H RBC 4.55 Hgb 15.0 Hct 43.0 MCV 94.5 MCH 32.9 MCHC 34.8 RDW 12.5 Plt Count 258 MPV 8.1 Sodium 138 Potassium 3.1 L Chloride 104 Carbon Dioxide 26 Anion Gap 8 BUN 15 Creatinine 0.8 Creat Clearance w eGFR > 60 Random Glucose 99 Calcium 7.7 L Phosphorus 2.5 Magnesium 2.2 Cancelled Total Bilirubin 1.1 H AST 10 L ALT 28 Alkaline Phosphatase 59 Total Protein 6.2 L Albumin 2.4 L Lipase 252 Physical Exam: NAD CV: RRR Lungs: CTAB Abd:slightly distended. NT, NL BS, tympanic Ext: no edema ASSESSMENT AND PLAN: 58 y/o man with h/o ETOH abuse, HTN, and asthma who presented with abd pain and was found to have gall stone pancreatitis . 1- Acute gall stone pancreatitis: s/p ERCP with stone extraction and sphincterectomy. - cont IVF and Abx . change IVF to NS due to shortage of LR - CCY tomorrow - NPO after MN - hold am Lovenox - increase dose of oxycodone to 5 mg q6h 2- ETOH abuse: no signs of withdrawal off ativan 3- HTN: cont Valsartan and norvasc Dispo: HLOC Visit type - Emergency Visit Emergency Visit: Yes ED Registration Date: 07/12/18 Care time: The patient presented to the Emergency Department on the above date and was hospitalized for further evaluation of their emergent condition. - New Patient This patient is new to me today: No - Critical Care Critical Care patient: No
[2018-07-17] MEDS ORDERED: POTASSIUM CHLORIDE TABS 20 MEQ TABLET.ER (FP) PO ONE (14:03)
[2018-07-17] MEDS: oxyCODONE HCL 5 MG TABLET PO PRN ×2 (14:07→22:26)
[2018-07-17] MEDS: SODIUM CHLORIDE 1,000 ML IV SCH (14:08)
--- NOTE | 2018-07-17 16:12 | PN ---
GI Progress Note Subjective: GI NOte (covering Dr. Wynne): Still feels bloated but pain is minimal. Passing flatus and has moved his bowels.Trino informs me that Dr Aviles has told him he will do the GB surgery tomorrow. Amylase and lipase have normalized - Objective Vital Signs: Vital Signs Temperature 99.9 F H 07/17/18 14:00 Pulse Rate 85 07/17/18 14:00 Respiratory Rate 18 07/17/18 14:00 Blood Pressure 137/81 07/17/18 14:00 O2 Sat by Pulse Oximetry (%) 96 07/17/18 09:00 Laboratory Tests 07/12/18 07/14/18 07/15/18 05:41 06:30 06:40 WBC 16.7 H 19.8 H 15.5 H Total Bilirubin AST ALT Alkaline Phosphatase Total Amylase Lipase 07/16/18 07/17/18 07/17/18 06:00 06:00 06:00 WBC 17.6 H Total Bilirubin 1.1 H AST 10 L ALT 28 Alkaline Phosphatase 59 Total Amylase 100 Lipase 252 Constitutional: Calm ...Auscultate: Yes: Normoactive Bowel Sounds ...Palpate: Yes: Soft, Other (nontender) ...Percussion: Yes: Tympanitic Labs: CBC, BMP 07/17/18 06:00 07/17/18 06:00 INR, PTT INR 1.21 (0.83-1.09) H 07/15/18 06:40 Assessment/Plan Anticipate lap choly tomorrow. Dr Wynne will return tomorrow Problem List - Problems (1) Choledocholithiasis with obstruction Code(s): K80.51 - CALCULUS OF BILE DUCT W/O CHOLANGITIS OR CHOLECYST W OBST (2) Gallstone pancreatitis Code(s): K85.10 - BILIARY ACUTE PANCREATITIS WITHOUT NECROSIS OR INFECTION
[2018-07-17] MEDS ORDERED: ZOLPIDEM TARTRATE 5 MG TABLET PO ONE (22:25)
[2018-07-18] MEDS: SODIUM CHLORIDE 1,000 ML IV SCH (05:42)
[2018-07-18] MEDS: ALBUTEROL SO4 0.083% IH SOL 2.5 MG/3 ML VIAL.NEB. NEB SCH ×4 (07:21→20:30)
[2018-07-18 08:00] LABS: ALBUMIN 2.3 g/dl (3.4-5.0); BILIRUBIN,DIRECT 0.3 mg/dL (0.0-0.2); BILIRUBIN,TOTAL 0.8 mg/dL (0.2-1); MAGNESIUM 2.1 mg/dL (1.8-2.4); PHOSPHOROUS 2.8 mg/dL (2.5-4.9); POTASSIUM 3.1 mmol/L (3.5-5.1); TOT PROT 5.8 g/dl (6.4-8.2)
[2018-07-18 08:03] LABS: BASO % 0.2 % (0-2.0); EOS % 0.9 % (0-4.5); HEMATOCRIT 40.5 % (35.4-49); HEMOGLOBIN 14.4 GM/dL (11.7-16.9); LYMPH % 5.2 % (8-40); MCH 33.3 pg (25.7-33.7); MCHC 35.5 g/dl (32.0-35.9); MEAN CELL VOLUME 93.9 fl (80-96); MEAN PLT VOLUME 7.9 fl (7.5-11.1); MONO % 10.2 % (3.8-10.2); NEUT % 83.5 % (42.8-82.8); PLATELET COUNT 276 K/MM3 (134-434); RBC 4.31 M/mm3 (4.00-5.60); RDW 12.7 % (11.9-15.9)
[2018-07-18] MEDS: amLODIPine BESYLATE 10 MG TABLET (FP) PO SCH ×2 (08:50→09:12)
[2018-07-18] MEDS: VALSARTAN 160 MG TABLET (UD) PO SCH ×2 (08:50→09:12)
--- NOTE | 2018-07-18 09:01 | PN ---
Physical Exam: SUBJECTIVE: Patient seen and examined at bedside. No acute events overnight. Pt states his abdomen feels much softer and is less distended. He also has had BM and flatus. OBJECTIVE: Vital Signs Temperature 98.2 F 07/18/18 06:26 Pulse Rate 89 07/18/18 06:26 Respiratory Rate 20 07/18/18 06:26 Blood Pressure 133/90 07/18/18 06:26 O2 Sat by Pulse Oximetry (%) 96 07/17/18 22:00 GENERAL: AAOx3. Comfortable, laying in bed. NAD HEENT: AT/NC. EOMI. Moist mucus membranes. NECK: Supple. LUNGS: B/L breath sounds equal HEART: RRR. Normal S1, S2. No murmurs noted. ABDOMEN: Soft, tenderness on the right upper quadrant and epigastric area, BS+. +Distension, but improved MUSCULOSKELETAL: Normal range of motion at all joints. No bony deformities or tenderness. No CVA tenderness. EXTREMITIES: 2+ dorsalis pedis pulses b/l. NEUROLOGICAL: No facial droop. Muscle strength 5/5 in all extremities, no tremors. Normal speech. Gait not observed. PSYCHIATRIC: Cooperative. Good eye contact. Appropriate mood and affect. SKIN: Warm, dry, normal turgor, no rashes or lesions noted, normal capillary refill. CBCD WBC 16.0 K/mm3 (4.0-10.0) H 07/18/18 06:40 RBC 4.31 M/mm3 (4.00-5.60) 07/18/18 06:40 Hgb 14.4 GM/dL (11.7-16.9) 07/18/18 06:40 Hct 40.5 % (35.4-49) 07/18/18 06:40 MCV 93.9 fl (80-96) 07/18/18 06:40 MCHC 35.5 g/dl (32.0-35.9) 07/18/18 06:40 RDW 12.7 % (11.9-15.9) 07/18/18 06:40 Plt Count 276 K/MM3 (134-434) 07/18/18 06:40 MPV 7.9 fl (7.5-11.1) 07/18/18 06:40 CMP Sodium 138 mmol/L (136-145) 07/17/18 06:00 Potassium 3.1 mmol/L (3.5-5.1) L 07/18/18 06:40 Chloride 104 mmol/L (98-107) 07/17/18 06:00 Carbon Dioxide 26 mmol/L (21-32) 07/17/18 06:00 Anion Gap 8 MMOL/L (8-16) 07/17/18 06:00 BUN 15 mg/dL (7-18) 07/17/18 06:00 Creatinine 0.8 mg/dL (0.55-1.3) 07/17/18 06:00 Creat Clearance w eGFR > 60 (>60) 07/17/18 06:00 Calcium 7.7 mg/dL (8.5-10.1) L 07/17/18 06:00 Total Bilirubin 0.8 mg/dL (0.2-1) 07/18/18 06:40 AST 13 U/L (15-37) L 07/18/18 06:40 ALT 21 U/L (13-61) 07/18/18 06:40 Alkaline Phosphatase 57 U/L (45-117) 07/18/18 06:40 Total Protein 5.8 g/dl (6.4-8.2) L 07/18/18 06:40 Albumin 2.3 g/dl (3.4-5.0) L 07/18/18 06:40 Active Medications Acetaminophen (Tylenol -) 650 mg PO Q6H PRN PRN Reason: PAIN LEVEL 1-5 Albuterol Sulfate (Ventolin 0.083% Nebulizer Soln -) 1 amp NEB RQID CHUCK Last Admin: 07/18/18 07:21 Dose: Not Given Amlodipine Besylate (Norvasc -) 10 mg PO DAILY CHUCK Last Admin: 07/18/18 08:50 Dose: 10 mg Enoxaparin Sodium (Lovenox -) 40 mg SQ DAILY CHUCK Last Admin: 07/17/18 09:58 Dose: 40 mg Ceftriaxone Sodium 2 gm/ (Dextrose) 100 mls @ 100 mls/hr IVPB DAILY CHUCK; Protocol Last Admin: 07/17/18 09:58 Dose: 100 mls/hr Metronidazole (Flagyl 500mg Premixed Ivpb -) 500 mg in 100 mls @ 100 mls/hr IVPB Q6H-IV CHUCK Last Admin: 07/18/18 08:50 Dose: 100 mls/hr Sodium Chloride (Normal Saline -) 1,000 mls @ 75 mls/hr IV ASDIR CHUCK Last Admin: 07/18/18 05:42 Dose: 75 mls/hr Potassium Chloride (Potassium Chloride 10 Meq Premix Ivpb -) 10 meq in 100 mls @ 100 mls/hr IVPB Q60M [facility] Stop: 07/18/18 11:59 Ondansetron HCl (Zofran Injection) 4 mg IVPUSH Q6H PRN PRN Reason: NAUSEA Last Admin: 07/12/18 12:57 Dose: 4 mg Oxycodone HCl (Roxicodone -) 5 mg PO Q6H PRN PRN Reason: PAIN LEVEL 6-10 Last Admin: 07/17/18 22:26 Dose: 5 mg Valsartan (Diovan -) 160 mg PO DAILY [facility] Last Admin: 07/18/18 08:50 Dose: 160 mg CONSULT Surgery- Dr. Aviles GI- Dr. Snell IMAGING: * CTAP: Acute pancreatitis, most marked at head of pancreas; free fluid in peripancreatic region and R anterior pararenal space. Mildly distended GB w/ calculi. Suspected 3 mm calculus within distal CBD. Splenomegaly. * Abd U/S: Mildly distended GB w/ thickened wall and pericholecystic fluid, + Mohan sign. Diffuse fatty infiltration of liver. * ERCP: After an expelled stone was found adjacent to the papilla and bulging in the duodenal wall suggested residual stones a sphincterotomy was performed and another 2 stones were extracted after which the sludge began to flow liberally. * Abd X-ray: No sign of free air. Large heart, and some mild congestive changes and fluid in horizontal fissure. Distended loops of bowel mainly seen in upper abdomen. * CXR: No sign of PTX or pneumoperitoneum. * CTAP (07/14): increased pancreatic parenchymal swelling as well as increased peripancreatic fluid consistent w/ pancreatitis. SB distension consistent w/ ileus. ASSESSMENT/PLAN: 58 y/o M w/ PMHx htn, admitted 07/12 to [place] with ruq/epigastric pain, found to have gallstone pancreatitis/cholelithiasis, transferred to [facility] for ERCP, now s/p ERCP with sphincterotomy/balloon sweeping/removal of calculi. #Acute gallstone pancreatitis; Improving. s/p ERCP. LFTs have normalized. -s/p ERCP, pancreatitis improved -Ceftriaxone 2 gm (started 07/14); Flagyl 500 mg IVPB Q6H (started 07/14) -Lap wesly scheduled for today, NPO, NS @ 75; await surg recs -Oxy 5 mg PO Q6H PRN for pain -Zofran 4 Q6H IVP for nausea #Alcohol abuse; no signs of withdrawal. Ativan d/c'd. #Hypertension-controlled -Cont home med: Valsartan 160 mg PO QD and Amlodipine 10 mg PO QD #FEN -NS @ 75 -Electrolytes to be repeated -NPO #Prophylaxis -For DVT; on SCDs, Lovenox 40 mg SQ QD held -For GI: Not indicated #Dispo -cont to monitor in med-surg -full code Visit type - Emergency Visit Emergency Visit: Yes ED Registration Date: 07/12/18 Care time: The patient presented to the Emergency Department on the above date and was hospitalized for further evaluation of their emergent condition. - New Patient This patient is new to me today: No - Critical Care Critical Care patient: No
[2018-07-18] MEDS ORDERED: DEXTROSE 5%-WATER 100 ML IVPB ONE (09:36)
[2018-07-18] MEDS: CEFTRIAXONE 2 GM in DEXTROSE 5%-WATER 100 ML IVPB SCH (09:39)
[2018-07-18] MEDS: KCL 10 MEQ IVPB 10 MEQ/100 ML INFUS.BAG IVPB SCH ×3 (09:44→12:04)
[2018-07-18] MEDS ORDERED: MAGNESIUM OXIDE 400 MG TABLET (FP) PO ONE (09:45)
--- NOTE | 2018-07-18 11:15 | PN ---
Progress Note (short form) - Note Progress Note: No new events Remains mildly distended but passing stool Awaiting wesly today 07/18/18 07/18/18 02:00 06:26 Temperature 98.5 F 98.2 F Pulse Rate 89 89 Respiratory 18 20 Rate Blood Pressure 132/79 133/90 O2 Sat by Pulse Oximetry (%) NAD CBC, BMP 07/18/18 06:40 07/18/18 06:40 Hepatic Panel Total Bilirubin 0.8 mg/dL (0.2-1) 07/18/18 06:40 Direct Bilirubin 0.3 mg/dL (0.0-0.2) H 07/18/18 06:40 AST 13 U/L (15-37) L 07/18/18 06:40 ALT 21 U/L (13-61) 07/18/18 06:40 Alkaline Phosphatase 57 U/L (45-117) 07/18/18 06:40 Albumin 2.3 g/dl (3.4-5.0) L 07/18/18 06:40 s/p ERCP with extraction of stones, LFTs now normal for cholecystectomy today Please call back with questions
--- NOTE | 2018-07-18 13:34 | PN ---
Progress Note (short form) - Note Progress Note: 58yo M h/o gallstone pancreatitis, s/p ERCP and spincterotomy. Pt was scheduled for lap wesly today, but will be delayed until tomorrow. Pt states that his abd pain is improved only complains of mild RUQ pain and abd distension. Pt denies n/v, but states lacks appetite. Last Vital Signs Temp Pulse Resp BP Pulse Ox 98.4 F 92 H 20 154/95 98 07/18/18 09:00 07/18/18 09:00 07/18/18 09:00 07/18/18 09:00 07/18/18 09:00 CBC, BMP 07/18/18 06:40 07/18/18 06:40 PE: Gen: A&O X3 Resp: breathing comfortably Abd: soft, moderately distended, RUQ mild tenderness. Ext: no edema Problem List - Problems (1) Gallstone pancreatitis Assessment/Plan: Plan -plan for OR tomorrow -NPO after midnight -GI ppx -medically optimize Code(s): K85.10 - BILIARY ACUTE PANCREATITIS WITHOUT NECROSIS OR INFECTION
--- NOTE | 2018-07-18 17:52 | PN ---
Teaching Attending Note Name of Resident: Jasmine Galeana ATTENDING PHYSICIAN STATEMENT I saw and evaluated the patient. I reviewed the resident's note and discussed the case with the resident. I agree with the resident's findings and plan as documented. SUBJECTIVE: no fever or chills . abd pain improved . cont to have BM, and pass gas . OBJECTIVE: NAD CV: RRR Lungs: CTAB Abd:slightly distended. NT, NL BS, tympanic Ext: no edema ASSESSMENT AND PLAN: 58 y/o man with h/o ETOH abuse, HTN, and asthma who presented with abd pain and was found to have gall stone pancreatitis . 1- Acute gall stone pancreatitis: s/p ERCP with stone extraction and sphincterectomy. - cont IVF and Abx. - CCY tomorrow . canceled for today - NPO after MN - hold Lovenox - cont pain control 2- ETOH abuse: no signs of withdrawal off ativan 3- HTN: cont Valsartan and norvasc Dispo: OC
[2018-07-18] MEDS: oxyCODONE HCL 5 MG TABLET PO PRN (21:16)
[2018-07-19] MEDS: SODIUM CHLORIDE 1,000 ML IV SCH ×2 (03:05→19:12)
[2018-07-19] MEDS: oxyCODONE HCL 5 MG TABLET PO PRN (03:15)
[2018-07-19] MEDS: ALBUTEROL SO4 0.083% IH SOL 2.5 MG/3 ML VIAL.NEB. NEB SCH (07:40)
[2018-07-19] MEDS: amLODIPine BESYLATE 10 MG TABLET (FP) PO SCH ×2 (08:44→09:04)
[2018-07-19] MEDS: VALSARTAN 160 MG TABLET (UD) PO SCH ×2 (08:44→09:04)
[2018-07-19] MEDS ORDERED: DEXTROSE 5%-WATER 100 ML IVPB ONE (09:43)
[2018-07-19] MEDS: CEFTRIAXONE 2 GM in DEXTROSE 5%-WATER 100 ML IVPB SCH (09:47)
[2018-07-19 10:04] LABS: HEMATOCRIT 43.6 % (35.4-49); MCH 32.7 pg (25.7-33.7); MCHC 34.3 g/dl (32.0-35.9); MEAN CELL VOLUME 95.4 fl (80-96); MEAN PLT VOLUME 8.2 fl (7.5-11.1); PLATELET COUNT 303 K/MM3 (134-434); RBC 4.58 M/mm3 (4.00-5.60); RDW 12.8 % (11.9-15.9); WHITE BLOOD COUNT 15.4 K/mm3 (4.0-10.0)
[2018-07-19 10:32] LABS: ANION GAP 11 MMOL/L (8-16); BLOOD UREA NITROGEN 15 mg/dL (7-18); CALCIUM 8.2 mg/dL (8.5-10.1); CHLORIDE 104 mmol/L (98-107); CO2 25 mmol/L (21-32); CREATININE 0.7 mg/dL (0.55-1.3); GLUCOSE,RANDOM 92 mg/dL (74-106); POTASSIUM 3.6 mmol/L (3.5-5.1); SODIUM 140 mmol/L (136-145)
--- NOTE | 2018-07-19 12:57 | PN ---
Physical Exam: SUBJECTIVE: Patient seen and examined at bedside. No acute events overnight. Denies cp, sob, abd pain, urinary/bowel symptoms. OBJECTIVE: Last Vital Signs Temp Pulse Resp BP Pulse Ox 98.4 F 80 16 133/80 96 07/19/18 16:36 07/19/18 17:35 07/19/18 17:35 07/19/18 17:35 07/19/18 17:35 GENERAL: AAOx3. Comfortable, laying in bed. NAD HEENT: AT/NC. EOMI. Moist mucus membranes. NECK: Supple. LUNGS: B/L breath sounds equal HEART: RRR. Normal S1, S2. No murmurs noted. ABDOMEN: Soft, tenderness on the right upper quadrant and epigastric area, BS+. +Distension, but improved MUSCULOSKELETAL: Normal range of motion at all joints. No bony deformities or tenderness. No CVA tenderness. EXTREMITIES: 2+ dorsalis pedis pulses b/l. NEUROLOGICAL: No facial droop. Muscle strength 5/5 in all extremities, no tremors. Normal speech. Gait not observed. PSYCHIATRIC: Cooperative. Good eye contact. Appropriate mood and affect. SKIN: Warm, dry, normal turgor, no rashes or lesions noted, normal capillary refill. Laboratory Results - last 24 hr 07/19/18 07/19/18 09:10 09:10 WBC 15.4 H RBC 4.58 Hgb 15.0 Hct 43.6 MCV 95.4 MCH 32.7 MCHC 34.3 RDW 12.8 Plt Count 303 MPV 8.2 Sodium 140 Potassium 3.6 Chloride 104 Carbon Dioxide 25 Anion Gap 11 BUN 15 Creatinine 0.7 Creat Clearance w eGFR > 60 Random Glucose 92 Calcium 8.2 L Active Medications Acetaminophen (Ofirmev Injection -) 1,000 mg IVPB Q6H PRN PRN Reason: PAIN LEVEL 1 - 3 Amlodipine Besylate (Norvasc -) 10 mg PO DAILY [facility] Last Admin: 07/19/18 09:04 Dose: Not Given Enoxaparin Sodium (Lovenox -) 40 mg SQ DAILY [facility] Fentanyl (Sublimaze Injection -) 50 mcg IVPUSH [id number] PRN PRN Reason: PAIN-PACU ORDER X 4 DOSES ONLY Ceftriaxone Sodium 2 gm/ (Dextrose) 100 mls @ 100 mls/hr IVPB DAILY [facility]; Protocol Last Admin: 07/19/18 09:47 Dose: 100 mls/hr Metronidazole (Flagyl 500mg Premixed Ivpb -) 500 mg in 100 mls @ 100 mls/hr IVPB Q6H-IV [facility] Last Admin: 07/19/18 15:44 Dose: Not Given Sodium Chloride (Normal Saline -) 1,000 mls @ 75 mls/hr IV [facility] Last Admin: 07/19/18 03:05 Dose: 75 mls/hr Morphine Sulfate (Morphine Sulfate) 2 mg IVPUSH Q6H PRN PRN Reason: PAIN LEVEL 7 - 10 Ondansetron HCl (Zofran Injection) 4 mg IVPUSH Q6H PRN PRN Reason: NAUSEA Last Admin: 07/12/18 12:57 Dose: 4 mg Valsartan (Diovan -) 160 mg PO DAILY [facility] Last Admin: 07/19/18 09:04 Dose: Not Given CONSULT Surgery- Dr. Aviles GI- Dr. Snell IMAGING: CTAP: Acute pancreatitis, most marked at head of pancreas; free fluid in peripancreatic region and R anterior pararenal space. Mildly distended GB w/ calculi. Suspected 3 mm calculus within distal CBD. Splenomegaly. Abd U/S: Mildly distended GB w/ thickened wall and pericholecystic fluid, + Mohan sign. Diffuse fatty infiltration of liver. ERCP: After an expelled stone was found adjacent to the papilla and bulging in the duodenal wall suggested residual stones a sphincterotomy was performed and another 2 stones were extracted after which the sludge began to flow liberally. Abd X-ray: No sign of free air. Large heart, and some mild congestive changes and fluid in horizontal fissure. Distended loops of bowel mainly seen in upper abdomen. CXR: No sign of PTX or pneumoperitoneum. CTAP (07/14): increased pancreatic parenchymal swelling as well as increased peripancreatic fluid consistent w/ pancreatitis. SB distension consistent w/ ileus. ASSESSMENT/PLAN: 58 y/o M w/ PMHx htn, admitted 07/12 to [place] with ruq/epigastric pain, found to have gallstone pancreatitis/cholelithiasis, transferred to [facility] for ERCP, now s/p ERCP with sphincterotomy/balloon sweeping/removal of calculi. #Acute gallstone pancreatitis; Improving. s/p ERCP. LFTs have normalized. -s/p ERCP, pancreatitis improved -Ceftriaxone 2 gm (started 07/14); Flagyl 500 mg IVPB Q6H (started 07/14); d/w ID duration of abx given persistently elevated WBC -Lap wesly scheduled for today, NPO, NS @ 100; await surg recs -Oxy 5 mg PO Q6H PRN for pain -Zofran 4 Q6H IVP for nausea #Alcohol abuse; no signs of withdrawal. Ativan d/c'd. #Hypertension-controlled -Cont home med: Valsartan 160 mg PO QD and Amlodipine 10 mg PO QD #FEN -NS @ 100 -Electrolytes to be repeated -NPO #Prophylaxis -For DVT; on SCDs, Lovenox 40 mg SQ QD held; resume after surgery -For GI: Not indicated #Dispo -cont to monitor in med-surg -full code Visit type - Emergency Visit Emergency Visit: Yes ED Registration Date: 07/12/18 Care time: The patient presented to the Emergency Department on the above date and was hospitalized for further evaluation of their emergent condition. - New Patient This patient is new to me today: No - Critical Care Critical Care patient: No
[2018-07-19] MEDS ORDERED: LIDOCAINE HCL/PF 2% SDV 5ML VIAL ONE ×2 (13:18→16:02)
[2018-07-19] MEDS ORDERED: fentaNYL CITRATE 250 MCG/5 ML VIAL ONE (13:19)
[2018-07-19] MEDS ORDERED: PROPOFOL 20 ML ONE (13:19)
[2018-07-19] MEDS ORDERED: ROCURONIUM BROMIDE 50 MG/5 ML VIAL ONE ×2 (13:19→14:51)
[2018-07-19] MEDS ORDERED: MIDAZOLAM HCL 2 MG/2 ML SINGLE DOSE VIAL ONE (13:20)
[2018-07-19] MEDS ORDERED: BUPIVACAINE HCL/PF 0.5% (5MG/ML) 10 ML VIAL ONE (14:02)
[2018-07-19] MEDS ORDERED: DEXAMETHASONE SOD PHOSPHATE 4 MG/1 ML VIAL ONE (14:07)
--- NOTE | 2018-07-19 15:03 | PN ---
Teaching Attending Note Name of Resident: Jasmine Galeana ATTENDING PHYSICIAN STATEMENT I saw and evaluated the patient. I reviewed the resident's note and discussed the case with the resident. I agree with the resident's findings and plan as documented. SUBJECTIVE: No fever or chills . mild abd pain , cont to have BMs. No N/V. OBJECTIVE: NAD CV: RRR Lungs: CTAB Abd: slightly distended. TTP in RUQ , NL BS, tympanic. Ext: no edema ASSESSMENT AND PLAN: 58 y/o man with h/o ETOH abuse, HTN, and asthma who presented with abd pain and was found to have gall stone pancreatitis . 1- Acute gall stone pancreatitis: s/p ERCP with stone extraction and sphincterectomy. - cont IVF and Abx. will d/w ID the duration of Abx after sx given persistent leukocytosis - CCY today . - resume diet and DVT px after sx - cont pain control 2- ETOH abuse: no signs of withdrawal off ativan 3- HTN: cont Valsartan and norvasc Dispo: HLOC
[2018-07-19] MEDS ORDERED: NEOSTIGMINE METHYLSULFATE 0.5 MG/ML - 10 ML MDV ONE (15:57)
[2018-07-19] MEDS ORDERED: GLYCOPYRROLATE 0.2 MG/1 ML VIAL ONE (15:57)
[2018-07-19] MEDS ORDERED: BUPIVACAINE HCL/PF (5 MG/ML) 30 ML VIAL IJ ONE ×2 (16:10)
[2018-07-19] MEDS ORDERED: MORPHINE SULFATE 2 MG/ML VIAL IVPUSH PRN (16:48)
[2018-07-19] MEDS ORDERED: ACETAMINOPHEN 1000 MG/100 ML VIAL (NON FORMULARY) IVPB PRN ×2 (17:00→18:24)
--- NOTE | 2018-07-19 17:00 | OP ---
Operative Note - Note: Operative Date: 07/19/18 Pre-Operative Diagnosis: Gallstone pancreatitis Operation: Laparoscopic cholecystectomy Findings: as dictated Implants: none Post-Operative Diagnosis: Same as Pre-op Surgeon: Victor Manuel Aviles Sqe: Krysten Lazcano Anesthesiologist/CAGE TENDER: Haven Allan Anesthesia: General, Local Specimens Removed: Gallbladder Estimated Blood Loss (mls): 50 (ml) Drains & Tubes with Location: DILLON drain Fluid Volume Replaced (mls): 1,200 (LR) Operative Report Dictated: Yes
--- NOTE | 2018-07-19 17:01 | SURG ---
Surgery Real Estate Salesperson Note Real Estate Salesperson: Krysten Lazcano PA-C (Suzy) Date of Service: 07/19/18 Diagnosis: Gallstone pancreatitis Procedure: Laparoscopic cholecystectomy I was present for the entirety of the operative procedure. For further detail, please refer to operative report. Visit type - Case Type Case Type: Scheduled - Emergency Emergency Visit: No - New patient This patient is new to me today: Yes Date on this admission: 07/19/18 - Critical Care Critical Care patient: No
[2018-07-19] MEDS ORDERED: ACETAMINOPHEN INJECTION 100 ML IVPB ONE (17:57)
[2018-07-19] MEDS ORDERED: ACETAMINOPHEN 1000 MG/100 ML VIAL (NON FORMULARY) IVPB ONE (18:04)
[2018-07-19] MEDS ORDERED: ONDANSETRON 4 MG/2 ML VIAL IVPUSH PRN (18:24)
[2018-07-19] MEDS: MORPHINE SULFATE 2 MG/ML VIAL IVPUSH PRN (23:02)
--- NOTE | 2018-07-20 07:15 | PN ---
Physical Exam: SUBJECTIVE: Patient seen and examined at bedside. No acute events overnight. Abd pain is minimal. Ambulating and OOB. Pt states he already has had flatus and BM. Feels well. OBJECTIVE: Last Vital Signs Temp Pulse Resp BP Pulse Ox 99 F 97 H 20 137/87 96 07/20/18 06:03 07/20/18 06:03 07/20/18 06:03 07/20/18 06:03 07/19/18 21:00 GENERAL: AAOx3. Comfortable, laying in bed. NAD HEENT: AT/NC. EOMI. Moist mucus membranes. NECK: Supple. LUNGS: B/L breath sounds equal HEART: RRR. Normal S1, S2. No murmurs noted. ABDOMEN: Soft, tenderness on the right upper quadrant and epigastric area, BS+. +Distension, surgical bandage c/d/i. DILLON drain in place MUSCULOSKELETAL: Normal range of motion at all joints. No bony deformities or tenderness. No CVA tenderness. EXTREMITIES: 2+ dorsalis pedis pulses b/l. NEUROLOGICAL: No facial droop. Muscle strength 5/5 in all extremities, no tremors. Normal speech. Gait not observed. PSYCHIATRIC: Cooperative. Good eye contact. Appropriate mood and affect. SKIN: Warm, dry, normal turgor, no rashes or lesions noted, normal capillary refill. CBC, BMP 07/19/18 09:10 07/19/18 09:10 Active Medications Acetaminophen (Ofirmev Injection -) 1,000 mg IVPB Q6H PRN PRN Reason: PAIN LEVEL 4 - 6 Amlodipine Besylate (Norvasc -) 10 mg PO DAILY [facility] Enoxaparin Sodium (Lovenox -) 40 mg SQ DAILY [facility] Ceftriaxone Sodium 2 gm/ (Dextrose) 100 mls @ 100 mls/hr IVPB DAILY [facility]; Protocol Metronidazole (Flagyl 500mg Premixed Ivpb -) 500 mg in 100 mls @ 100 mls/hr IVPB Q6H-IV [facility] Last Admin: 07/20/18 03:15 Dose: 100 mls/hr Sodium Chloride (Normal Saline -) 1,000 mls @ 100 mls/hr IV ASDIR [facility] Last Admin: 07/19/18 19:12 Dose: 100 mls/hr Morphine Sulfate (Morphine Sulfate) 2 mg IVPUSH Q6H PRN PRN Reason: PAIN LEVEL 7 - 10 Last Admin: 07/19/18 23:02 Dose: 2 mg Ondansetron HCl (Zofran Injection) 4 mg IVPUSH Q6H PRN PRN Reason: NAUSEA Valsartan (Diovan -) 160 mg PO DAILY [facility] CONSULT Surgery- Dr. Aviles GI- Dr. Snell IMAGING CTAP: Acute pancreatitis, most marked at head of pancreas; free fluid in peripancreatic region and R anterior pararenal space. Mildly distended GB w/ calculi. Suspected 3 mm calculus within distal CBD. Splenomegaly. Abd U/S: Mildly distended GB w/ thickened wall and pericholecystic fluid, + Mohan sign. Diffuse fatty infiltration of liver. ERCP: After an expelled stone was found adjacent to the papilla and bulging in the duodenal wall suggested residual stones a sphincterotomy was performed and another 2 stones were extracted after which the sludge began to flow liberally. Abd X-ray: No sign of free air. Large heart, and some mild congestive changes and fluid in horizontal fissure. Distended loops of bowel mainly seen in upper abdomen. CXR: No sign of PTX or pneumoperitoneum. CTAP (07/14): increased pancreatic parenchymal swelling as well as increased peripancreatic fluid consistent w/ pancreatitis. SB distension consistent w/ ileus. ASSESSMENT/PLAN: 58 y/o M w/ PMHx htn, admitted 07/12 to [place] with ruq/epigastric pain, found to have gallstone pancreatitis/cholelithiasis, transferred to [facility] for ERCP, now s/p ERCP with sphincterotomy/balloon sweeping/removal of calculi. #Acute gallstone pancreatitis; Improving. s/p ERCP, s/p lap wesly POD #1. -s/p ERCP, pancreatitis improved -Ceftriaxone 2 gm (started 07/14); Flagyl 500 mg IVPB Q6H (started 07/14); d/w ID duration of abx given persistently elevated WBC (today 16.4 although this increase may be reactive 2/2 surgery) -Oxy 5 mg PO Q6H PRN, Morphine 2 Q6H IVP, IV Tylenol for pain -Zofran 4 Q6H IVP for nausea -Per surg, adv to CLD, keep DILLON in place (output 200 mL in 24 hours) #Alcohol abuse; no signs of withdrawal. Ativan d/c'd. #Hypertension-controlled -Cont home med: Valsartan 160 mg PO QD and Amlodipine 10 mg PO QD #FEN -NS @ 100 -Electrolytes to be repeated -NPO #Prophylaxis -For DVT; on SCDs, Lovenox 40 mg SQ QD held -For GI: Not indicated #Dispo -cont to monitor in med-surg -full code Visit type - Emergency Visit Emergency Visit: Yes ED Registration Date: 07/12/18 Care time: The patient presented to the Emergency Department on the above date and was hospitalized for further evaluation of their emergent condition. - New Patient This patient is new to me today: No - Critical Care Critical Care patient: No
[2018-07-20 08:26] LABS: HEMATOCRIT 40.6 % (35.4-49); HEMOGLOBIN 14.1 GM/dL (11.7-16.9); MCH 32.7 pg (25.7-33.7); MCHC 34.7 g/dl (32.0-35.9); MEAN CELL VOLUME 94.1 fl (80-96); MEAN PLT VOLUME 7.9 fl (7.5-11.1); PLATELET COUNT 337 K/MM3 (134-434); RBC 4.32 M/mm3 (4.00-5.60); RDW 12.9 % (11.9-15.9); WHITE BLOOD COUNT 16.4 K/mm3 (4.0-10.0)
--- NOTE | 2018-07-20 09:23 | PN ---
Progress Note (short form) - Note Progress Note: POD 1, s/p Laparoscopic cholecystectomy Pt seen and examined. States he feels unchanged. Continues to have abdominal distention and discomfort. Has not passed flatus. Urinating without issue. Has not been oob yet, requesting some assistance from RN. Denies cps/ob, n/v/d, calf pain/edema. Vital Signs Temp 99 F 07/20/18 06:03 Pulse 97 H 07/20/18 06:03 Resp 20 07/20/18 06:03 BP 137/87 07/20/18 06:03 Pulse Ox 96 07/19/18 21:00 Intake & Output 07/19/18 07/19/18 07/20/18 11:59 23:59 11:59 Intake Total 850 1600 1100 Output Total 860 350 Balance 850 740 750 Intake: IV 750 1500 1000 Normal Saline - 1,000 ml 1000 @ 100 mls/hr IV ASD[facility] Rx#:[id number] Normal Saline - 1,000 ml 750 @ 75 mls/hr IV ASDIR [facility] Rx#:[id number] IVPB 100 100 100 Oral 0 0 0 Output: Drainage 210 50 Abdomen 150 50 Urine 600 300 Void 600 300 Estimated Blood Loss 50 Other: Voiding Method Toilet Urinal # Unmeasured Voids Void 2 2 Bowel Movement No CBC, BMP 07/20/18 07:26 Gen: awake, alert, nad Resp: cta b/l anteriorly CV: rrr, s1s2 Abdo: Distended, slightly moreso than yesterday. TTP at port sites. Hypoactive bowel sounds. No rebound or guarding. Port site dressings c/d/i. RLQ Drain dressing saturated with serous fluid, Removed, new dressing placed. Tubing stripped. Minimal serous drainage in reservoir. A/P: 58 y/o M w/ PMHx htn, admitted 07/12 to [place] with ruq/epigastric pain , found to have gallstone pancreatitis/cholelithiasis, transferred to [facility] yesterday for ERCP, s/p ERCP with sphincterotomy/balloon sweeping/removal of calculi on 07/12, now POD 1, s/p Laparoscopic cholecystectomy. Afebrile, VSS. DILLON output 200ml in 24 hours. Labs reviewed, wbc trending up, likely inflammatory from surgery. Liver enzymes normalized. -Advance diet to clears -Monitor VS -Serial abdo exams -Trend wbc -Continue IV abx per ID -Pain control -OOB as tolerated -Keep Dillon in place, monitor/record output above d/w attending Dr Aviles
[2018-07-20 09:55] LABS: ALBUMIN 2.1 g/dl (3.4-5.0); ALK PHOS 53 U/L (45-117); AMYLASE 73 U/L (25-115); ANION GAP 11 MMOL/L (8-16); BILIRUBIN,TOTAL 0.4 mg/dL (0.2-1); BLOOD UREA NITROGEN 17 mg/dL (7-18); CALCIUM 7.7 mg/dL (8.5-10.1); CHLORIDE 108 mmol/L (98-107); CO2 25 mmol/L (21-32); CREATININE 0.8 mg/dL (0.55-1.3); GLUCOSE,RANDOM 98 mg/dL (74-106); LIPASE 185 U/L (73-393); POTASSIUM 3.7 mmol/L (3.5-5.1); SGOT/AST 25 U/L (15-37); SGPT/ALT 23 U/L (13-61); SODIUM 143 mmol/L (136-145); TOT PROT 5.5 g/dl (6.4-8.2)
[2018-07-20] MEDS: ENOXAPARIN NA (PORCINE) 40 MG/0.4 ML DISP.SYRIN SQ SCH (11:00)
[2018-07-20] MEDS: VALSARTAN 160 MG TABLET (UD) PO SCH (11:00)
[2018-07-20] MEDS: amLODIPine BESYLATE 10 MG TABLET (FP) PO SCH (11:00)
[2018-07-20] MEDS ORDERED: DEXTROSE 5%-WATER 100 ML IVPB ONE (11:22)
--- NOTE | 2018-07-20 12:03 | PN ---
Progress Note (short form) - Note Progress Note: POD #1 s/p lap choly +BM today still with drain with serous drainage Vital Signs Period Temp Pulse Resp BP Sys/Almaguer Pulse Ox Last 24 Hr 98.0 F-99 F 20-97 16-20 120-140/80-92 96-96 cor-rrr lungs decreased bs at bases abd soft,nt +DILLON drain with serous fluid ext no edema CBC, BMP 07/20/18 07:26 07/20/18 07:26 Microbiology 07/14/18 18:00 Blood - Peripheral Venous Blood Culture - Final NO GROWTH AFTER 5 DAYS INCUBATION 07/14/18 16:45 Blood - Peripheral Venous Blood Culture - Final NO GROWTH AFTER 5 DAYS INCUBATION 07/12/18 05:41 Blood - Peripheral Venous Blood Culture - Final NO GROWTH AFTER 5 DAYS INCUBATION 07/12/18 05:41 Blood - Peripheral Venous Blood Culture - Final NO GROWTH AFTER 5 DAYS INCUBATION 07/12/18 11:50 Urine - Urine Clean Catch Urine Culture - Final Contaminated: Please Repeat a/p pod #1 s/p lap choly gallstone pancreatitis leukocytosis continue rocephin/flagyl f/u cbc in am
[2018-07-20] MEDS: CEFTRIAXONE 2 GM in DEXTROSE 5%-WATER 100 ML IVPB SCH (12:28)
--- NOTE | 2018-07-20 13:28 | PN ---
Progress Note, Physician History of Present Illness: Pt seen/examined at bedside, s/p lap cholecystectomy (POD #1), feeling well, tolerating clear liquids, mild abdominal discomfort at surgical site, moved bowels, no complaints currently. - Current Medication List Current Medications: Active Medications Acetaminophen (Ofirmev Injection -) 1,000 mg IVPB Q6H PRN PRN Reason: PAIN LEVEL 4 - 6 Amlodipine Besylate (Norvasc -) 10 mg PO DAILY [facility] Last Admin: 07/20/18 11:00 Dose: 10 mg Enoxaparin Sodium (Lovenox -) 40 mg SQ DAILY [facility] Last Admin: 07/20/18 11:00 Dose: 40 mg Ceftriaxone Sodium 2 gm/ (Dextrose) 100 mls @ 100 mls/hr IVPB DAILY [facility]; Protocol Last Admin: 07/20/18 12:28 Dose: 100 mls/hr Metronidazole (Flagyl 500mg Premixed Ivpb -) 500 mg in 100 mls @ 100 mls/hr IVPB Q6H-IV [facility] Last Admin: 07/20/18 11:00 Dose: 100 mls/hr Sodium Chloride (Normal Saline -) 1,000 mls @ 100 mls/hr IV ASDIR [facility] Last Admin: 07/19/18 19:12 Dose: 100 mls/hr Morphine Sulfate (Morphine Sulfate) 2 mg IVPUSH Q6H PRN PRN Reason: PAIN LEVEL 7 - 10 Last Admin: 07/19/18 23:02 Dose: 2 mg Ondansetron HCl (Zofran Injection) 4 mg IVPUSH Q6H PRN PRN Reason: NAUSEA Valsartan (Diovan -) 160 mg PO DAILY [facility] Last Admin: 07/20/18 11:00 Dose: 160 mg - Objective Vital Signs: Vital Signs Temperature 97.9 F 07/20/18 11:30 Pulse Rate 81 07/20/18 11:30 Respiratory Rate 20 07/20/18 06:03 Blood Pressure 130/83 07/20/18 11:30 O2 Sat by Pulse Oximetry (%) 96 07/19/18 21:00 Constitutional: Yes: Well Nourished, No Distress, Calm HENT: Yes: WNL, Atraumatic Cardiovascular: Yes: WNL, Regular Rate and Rhythm Respiratory: Yes: WNL, Regular, CTA Bilaterally Gastrointestinal: Yes: WNL, Normal Bowel Sounds Labs: CBC, BMP 07/20/18 07:26 07/20/18 07:26 INR, PTT INR 1.21 (0.83-1.09) H 07/15/18 06:40 Problem List - Problems (1) Gallstone pancreatitis Assessment/Plan: s/p ERCP with stone extraction and sphincterotomy on 07/12/18, with subsequent laparoscopic cholecystectomy, POD #1. Pt feeling well, tolerating clear liquid diet, moving bowels. LFTs normal. -Advance diet as tolerated -Further recommendations per surgery team -Please call GI if any questions/concerns Code(s): K85.10 - BILIARY ACUTE PANCREATITIS WITHOUT NECROSIS OR INFECTION
[2018-07-20] MEDS: MORPHINE SULFATE 2 MG/ML VIAL IVPUSH PRN ×2 (14:49→21:10)
--- NOTE | 2018-07-20 17:28 | PN ---
Teaching Attending Note Name of Resident: Jasmine Galeana ATTENDING PHYSICIAN STATEMENT I saw and evaluated the patient. I reviewed the resident's note and discussed the case with the resident. I agree with the resident's findings and plan as documented. SUBJECTIVE: Patient is comfortable with no nausea or vomiting, no fever or chills. OBJECTIVE: Vital Signs Temperature 98.4 F 07/20/18 13:49 Pulse Rate 79 07/20/18 13:49 Respiratory Rate 20 07/20/18 06:03 Blood Pressure 130/83 07/20/18 11:30 O2 Sat by Pulse Oximetry (%) 96 07/19/18 21:00 GENERAL: AAOx3. Comfortable, laying in bed. NAD HEENT: AT/NC. EOMI. Moist mucus membranes. NECK: Supple. no jvd, LUNGS: B/L breath sounds equal HEART: RRR. Normal S1, S2. No murmurs noted. ABDOMEN: Soft, mild tenderness on the right upper quadrant and epigastric area, BS+. improving MUSCULOSKELETAL: Normal range of motion at all joints. No bony deformities or tenderness. No CVA tenderness. EXTREMITIES: 2+ dorsalis pedis pulses b/l. NEUROLOGICAL: No facial droop. Muscle strength 5/5 in all extremities, no tremors. Normal speech. PSYCHIATRIC: Cooperative. Good eye contact. Appropriate mood and affect. SKIN: Warm, dry, normal turgor, no rashes or lesions noted, normal capillary refill. CBCD WBC 16.4 K/mm3 (4.0-10.0) H 07/20/18 07:26 RBC 4.32 M/mm3 (4.00-5.60) 07/20/18 07:26 Hgb 14.1 GM/dL (11.7-16.9) 07/20/18 07:26 Hct 40.6 % (35.4-49) 07/20/18 07:26 MCV 94.1 fl (80-96) 07/20/18 07:26 MCHC 34.7 g/dl (32.0-35.9) 07/20/18 07:26 RDW 12.9 % (11.9-15.9) 07/20/18 07:26 Plt Count 337 K/MM3 (134-434) 07/20/18 07:26 MPV 7.9 fl (7.5-11.1) 07/20/18 07:26 CMP Sodium 143 mmol/L (136-145) 07/20/18 07:26 Potassium 3.7 mmol/L (3.5-5.1) 07/20/18 07:26 Chloride 108 mmol/L (98-107) H 07/20/18 07:26 Carbon Dioxide 25 mmol/L (21-32) 07/20/18 07:26 Anion Gap 11 MMOL/L (8-16) 07/20/18 07:26 BUN 17 mg/dL (7-18) 07/20/18 07:26 Creatinine 0.8 mg/dL (0.55-1.3) 07/20/18 07:26 Creat Clearance w eGFR > 60 (>60) 07/20/18 07:26 Random Glucose 98 mg/dL (74-106) 07/20/18 07:26 Calcium 7.7 mg/dL (8.5-10.1) L 07/20/18 07:26 Total Bilirubin 0.4 mg/dL (0.2-1) 07/20/18 07:26 AST 25 U/L (15-37) 07/20/18 07:26 ALT 23 U/L (13-61) 07/20/18 07:26 Alkaline Phosphatase 53 U/L (45-117) 07/20/18 07:26 Total Protein 5.5 g/dl (6.4-8.2) L 07/20/18 07:26 Albumin 2.1 g/dl (3.4-5.0) L 07/20/18 07:26 CARDIAC ENZYMES Creatine Kinase 111 IU/L (26-308) 07/12/18 05:41 Troponin I < 0.02 ng/ml (0.00-0.05) 07/12/18 05:41 Current Medications Generic Name Dose Route Start Last Admin Trade Name Freq PRN Reason Stop Dose Admin Acetaminophen 1,000 mg 07/19/18 18:24 Ofirmev Injection - IVPB Q6H PRN PAIN LEVEL 4 - 6 Amlodipine Besylate 10 mg 07/20/18 10:00 07/20/18 11:00 Norvasc - PO 10 mg DAILY [facility] Administration Enoxaparin Sodium 40 mg 07/20/18 10:00 07/20/18 11:00 Lovenox - SQ 40 mg DAILY [facility] Administration Ceftriaxone Sodium 2 gm/ 100 mls @ 100 mls/hr 07/20/18 10:00 07/20/18 12:28 Dextrose IVPB 100 mls/hr DAILY [facility] Administration Protocol Metronidazole 500 mg in 100 mls @ 100 mls/hr 07/19/18 21:00 07/20/18 14:50 Flagyl 500mg Premixed Ivpb - IVPB 100 mls/hr Q6H-IV [facility] Administration Sodium Chloride 1,000 mls @ 100 mls/hr 07/19/18 18:24 07/19/18 19:12 Normal Saline - IV 100 mls/hr ASDIR [facility] Administration Morphine Sulfate 2 mg 07/19/18 18:24 07/20/18 14:49 Morphine Sulfate IVPUSH 2 mg Q6H PRN Administration PAIN LEVEL 7 - 10 Ondansetron HCl 4 mg 07/19/18 18:24 Zofran Injection IVPUSH Q6H PRN NAUSEA Valsartan 160 mg 07/20/18 10:00 07/20/18 11:00 Diovan - PO 160 mg DAILY [facility] Administration Home Medications Medication Instructions Recorded Amlodipine Besylate [Norvasc -] 10 mg PO DAILY 09/26/17 Valsartan [Diovan] 160 mg PO DAILY 09/26/17 ASSESSMENT AND PLAN: 58 y/o man with h/o ETOH abuse, HTN, and asthma who presented with abd pain and was found to have gall stone pancreatitis . # Acute gall stone pancreatitis: s/p ERCP with stone extraction and sphincterectomy. continue IVF and Abx. will d/w ID the duration of Abx #pod #1 s/p lap choly s/p CCY, resume diet , pain control continue rocephin/ flagyl, f/u cbc in am # ETOH abuse: no signs of withdrawal off ativan now # HTN: cont Valsartan and norvasc DVt Px: Lovenox
[2018-07-20] MEDS: SODIUM CHLORIDE 1,000 ML IV SCH (21:10)
[2018-07-21] MEDS: MORPHINE SULFATE 2 MG/ML VIAL IVPUSH PRN (03:19)
[2018-07-21 07:29] LABS: HEMOGLOBIN 14.4 GM/dL (11.7-16.9); MCH 32.4 pg (25.7-33.7); MCHC 34.2 g/dl (32.0-35.9); MEAN CELL VOLUME 94.7 fl (80-96); PLATELET COUNT 315 K/MM3 (134-434); RBC 4.43 M/mm3 (4.00-5.60); WHITE BLOOD COUNT 15.1 K/mm3 (4.0-10.0)
--- NOTE | 2018-07-21 08:23 | PN ---
Progress Note (short form) - Note Progress Note: surgery POD #2 laparoscopic cholecyestectomy patient seen and examined at bedside with no complaints. He is tolerating diet and pain controlled. He has been OOB voiding and having BMs. Vital Signs Temp 98.4 F 07/21/18 06:00 Pulse 85 07/21/18 06:00 Resp 20 07/20/18 23:46 BP 124/79 07/21/18 06:00 Pulse Ox 96 07/20/18 21:00 Intake & Output 07/20/18 07/20/18 07/21/18 11:59 23:59 11:59 Intake Total 1100 1700 Output Total 350 50 30 Balance 750 1650 -30 Intake: IV 1000 1100 Normal Saline - 1,000 ml 1000 1100 @ 100 mls/hr IV ASDIR [facility] Rx#:[id number] IVPB 100 300 Oral 0 300 Output: Drainage 50 50 30 Abdomen 50 50 30 Urine 300 Void 300 Other: Voiding Method Toilet Toilet # Unmeasured Voids Void 2 Bowel Movement Yes No # Bowel Movements 1 1 CBC, BMP 07/21/18 06:30 07/20/18 07:26 PE: A&Ox3, NAD unlabored resp on RA ABD: Obese, soft with mild distention and mild TTP throughout at incisions sites appropriate to status. Incisions c/d/i with surrounding tissue intact and no evidence of tracking. Drain secure with yellow tinged d/c. put out 30cc overnight. Moving all extremities without limitation. Problem List - Problems (1) S/P laparoscopic cholecystectomy Assessment/Plan: A/P: 58 y/o M w/ PMHx htn, admitted 07/12 to [place] with ruq/epigastric pain , found to have gallstone pancreatitis/cholelithiasis, transferred to [facility] yesterday for ERCP, s/p ERCP with sphincterotomy/balloon sweeping/removal of calculi on 07/12, now POD #2 , s/p Laparoscopic cholecystectomy. -continue clear diet -Monitor VS -Serial abdo exams -Trend wbc -Continue IV abx per ID -Pain control -OOB as tolerated, encourage ambulation and up to chair for meals. -Keep Henry in place, monitor/record output above d/w attending Dr Aviles Code(s): Z90.49 - ACQUIRED ABSENCE OF OTHER SPECIFIED PARTS OF DIGESTIVE TRACT
[2018-07-21] MEDS ORDERED: PT OWN MED DRAWER 7, Y5N ONE (09:23)
[2018-07-21] MEDS ORDERED: DEXTROSE 5%-WATER 100 ML IVPB ONE (09:23)
[2018-07-21] MEDS: CEFTRIAXONE 2 GM in DEXTROSE 5%-WATER 100 ML IVPB SCH (09:32)
[2018-07-21] MEDS: ENOXAPARIN NA (PORCINE) 40 MG/0.4 ML DISP.SYRIN SQ SCH (09:33)
[2018-07-21] MEDS: VALSARTAN 160 MG TABLET (UD) PO SCH (09:33)
[2018-07-21] MEDS: amLODIPine BESYLATE 10 MG TABLET (FP) PO SCH (09:33)
--- NOTE | 2018-07-21 09:34 | OP ---
DATE OF OPERATION: 07/19/2018 PREOPERATIVE DIAGNOSIS: Cholelithiasis and acute cholecystitis, status post gallstone pancreatitis. POSTOPERATIVE DIAGNOSIS: Cholelithiasis and acute cholecystitis, status post gallstone pancreatitis. PROCEDURE: Laparoscopic cholecystectomy. SURGEON: Victor Manuel Aviles MD TIN TIE MACHINE OPERATOR AUTOMATIC: Sandy Lazcano PA-C ANESTHESIA: General. OPERATIVE FINDINGS: There was evidence of acute cholecystitis and cholelithiasis and a large phlegmon surrounding the gallbladder. In addition, there was some free intraperitoneal fluid most likely secondary to the patient's gallstone pancreatitis. The rest of the findings were unremarkable. PROCEDURE: The patient was placed on the operating table in the supine position and after the induction of general anesthesia the patient's abdomen was prepped with ChloraPrep and draped in sterile fashion. A timeout was taken and pneumoperitoneum established above the umbilicus using a Veress needle. Once 15 mmHg of pressure were obtained, a 5-mm port was placed at the umbilicus and additional lateral 5-mm ports and a subxiphoid 12-mm port. Laparoscopy was carried out and the previously noted findings were observed. Dissection was begun at the neck of the gallbladder where the peritoneum was opened medially and laterally using blunt dissection and electrocautery. The cystic duct was identified coursing from the neck of the gallbladder towards the common bile duct and it was dissected using blunt dissection proximally and distally for length. Similarly, the artery was identified and dissected proximally and distally for length. A critical view of safety was taken and then the duct and the artery were clipped twice proximally and twice distally with large hemoclips. The duct and artery were then serially divided using Endoshears. Hemostasis was checked for and noted to be good and then the gallbladder was removed from the liver bed in a retrograde fashion using electrocautery. Prior to removal from the edge of the liver, hemostasis in the liver bed was again checked for and noted to be good and then the gallbladder removed from the edge of the liver, placed in an EndoCatch , and brought out through the subxiphoid port. Pneumoperitoneum was reestablished. Copious irrigation was carried out with saline. Hemostasis was verified again. A 10-mm Emmanuel-Mae drain was placed in the right hepatorenal fossa and brought out through 1 of the 5-mm ports and secured to the skin with 2-0 silk suture. All port sites were removed under laparoscopic vision without evidence of bleeding from the port sites. The port sites were infiltrated with 0.5% Marcaine and the skin edges reapproximated with 4-0 Biosyn in a subcuticular continuous fashion. Steri-Strips and Band-Aid dressings were placed. The drain was connected to bulb suction and then the patient aroused from general anesthesia and transferred to the postanesthesia care unit in stable condition, awake and alert. ESTIMATED BLOOD LOSS: 50 mL. REPLACEMENT: Crystalloid. DRAINS: One 10-mm Emmanuel-Mae. SPECIMEN: Gallbladder and contents to Pathology. I, Victor Manuel Aviles, was physically present in the operating room from the time the patient was placed on the operating table until he was transferred to the postanesthesia care unit in [place]. MD LYNETTE Epstein/[id number] MTDD
[2018-07-21] MEDS: SODIUM CHLORIDE 1,000 ML IV SCH (11:02)
--- NOTE | 2018-07-21 14:01 | PN ---
Progress Note (short form) - Note Progress Note: POD #2 s/p lap choly +BM today drain removed eating normal diet Vital Signs Period Temp Pulse Resp BP Sys/Almaguer Pulse Ox Last 24 Hr 97.9 F-98.4 F 70-85 20 112-141/70-89 96 cor-rrr lungs clear abd soft, slightly distended, NT ext no edema CBC, BMP / 06:30 07/20/18 07:26 Microbiology 07/14/18 18:00 Blood - Peripheral Venous Blood Culture - Final NO GROWTH AFTER 5 DAYS INCUBATION 07/14/18 16:45 Blood - Peripheral Venous Blood Culture - Final NO GROWTH AFTER 5 DAYS INCUBATION 07/12/18 05:41 Blood - Peripheral Venous Blood Culture - Final NO GROWTH AFTER 5 DAYS INCUBATION 07/12/18 05:41 Blood - Peripheral Venous Blood Culture - Final NO GROWTH AFTER 5 DAYS INCUBATION 07/12/18 11:50 Urine - Urine Clean Catch Urine Culture - Final Contaminated: Please Repeat a/p pod #2 s/p lap choly gallstone pancreatitis leukocytosis d/c antibiotics would observe off antibiotics in the hospital ?leukocytosis due to pancreatic inflammation ?need for repeat abdominal imaging- will d/w GI
--- NOTE | 2018-07-21 14:50 | PN ---
Physical Exam: SUBJECTIVE: Patient seen and examined at bedside. No acute events overnight. Minimal abd pain. +flatus and +BM. Christin PO Diet. ambulating well. OBJECTIVE: Last Vital Signs Temp Pulse Resp BP Pulse Ox 97.9 F 85 20 135/85 96 07/21/18 14:06 07/21/18 14:06 07/20/18 23:46 07/21/18 14:06 07/20/18 21:00 GENERAL: AAOx3. Comfortable, laying in bed. NAD HEENT: AT/NC. EOMI. Moist mucus membranes. NECK: Supple. LUNGS: B/L breath sounds equal HEART: RRR. Normal S1, S2. No murmurs noted. ABDOMEN: Soft, minimal abd tenderness, BS+. +Distension, surgical bandage c/d/i. MUSCULOSKELETAL: Normal range of motion at all joints. No bony deformities or tenderness. No CVA tenderness. EXTREMITIES: 2+ dorsalis pedis pulses b/l. NEUROLOGICAL: No facial droop. Muscle strength 5/5 in all extremities, no tremors. Normal speech. Gait not observed. PSYCHIATRIC: Cooperative. Good eye contact. Appropriate mood and affect. SKIN: Warm, dry, normal turgor, no rashes or lesions noted, normal capillary refill. CBC, BMP 07/21/18 06:30 07/20/18 07:26 Active Medications Acetaminophen (Ofirmev Injection -) 1,000 mg IVPB Q6H PRN PRN Reason: PAIN LEVEL 4 - 6 Amlodipine Besylate (Norvasc -) 10 mg PO DAILY [facility] Last Admin: 07/21/18 09:33 Dose: 10 mg Enoxaparin Sodium (Lovenox -) 40 mg SQ DAILY [facility] Last Admin: 07/21/18 09:33 Dose: 40 mg Morphine Sulfate (Morphine Sulfate) 2 mg IVPUSH Q6H PRN PRN Reason: PAIN LEVEL 7 - 10 Last Admin: 07/21/18 03:19 Dose: 2 mg Ondansetron HCl (Zofran Injection) 4 mg IVPUSH Q6H PRN PRN Reason: NAUSEA Valsartan (Diovan -) 160 mg PO DAILY [facility] Last Admin: 07/21/18 09:33 Dose: 160 mg CONSULT Surgery- Dr. Aviles GI- Dr. Snell IMAGING CTAP: Acute pancreatitis, most marked at head of pancreas; free fluid in peripancreatic region and R anterior pararenal space. Mildly distended GB w/ calculi. Suspected 3 mm calculus within distal CBD. Splenomegaly. Abd U/S: Mildly distended GB w/ thickened wall and pericholecystic fluid, + Mohan sign. Diffuse fatty infiltration of liver. ERCP: After an expelled stone was found adjacent to the papilla and bulging in the duodenal wall suggested residual stones a sphincterotomy was performed and another 2 stones were extracted after which the sludge began to flow liberally. Abd X-ray: No sign of free air. Large heart, and some mild congestive changes and fluid in horizontal fissure. Distended loops of bowel mainly seen in upper abdomen. CXR: No sign of PTX or pneumoperitoneum. CTAP (07/14): increased pancreatic parenchymal swelling as well as increased peripancreatic fluid consistent w/ pancreatitis. SB distension consistent w/ ileus. ASSESSMENT/PLAN: 58 y/o M w/ PMHx htn, admitted 07/12 to [place] with ruq/epigastric pain, found to have gallstone pancreatitis/cholelithiasis, transferred to [facility] for ERCP, now s/p ERCP with sphincterotomy/balloon sweeping/removal of calculi and s/p lap wesly POD#2. #Acute gallstone pancreatitis; Improving. s/p ERCP, s/p lap wesly POD #1. -s/p ERCP, pancreatitis improved -Per ID, will monitor off abx for now. Leukocytosis could possibly be due to ? pancreatic inflammation -Oxy 5 mg PO Q6H PRN, Morphine 2 Q6H IVP, IV Tylenol for pain -Zofran 4 Q6H IVP for nausea #Alcohol abuse; no signs of withdrawal. Ativan d/c'd. #Hypertension-controlled -Cont home med: Valsartan 160 mg PO QD and Amlodipine 10 mg PO QD #FEN -NS @ 100 -Electrolytes to be repeated -NPO #Prophylaxis -For DVT; on SCDs, Lovenox 40 mg SQ QD #Dispo -cont to monitor in med-surg -full code Visit type - Emergency Visit Emergency Visit: Yes ED Registration Date: 07/12/18 Care time: The patient presented to the Emergency Department on the above date and was hospitalized for further evaluation of their emergent condition. - New Patient This patient is new to me today: No - Critical Care Critical Care patient: No
[2018-07-21 15:17] LABS: HEMATOCRIT 44.1 % (35.4-49); HEMOGLOBIN 15.3 GM/dL (11.7-16.9); MCH 33.1 pg (25.7-33.7); MCHC 34.6 g/dl (32.0-35.9); MEAN CELL VOLUME 95.4 fl (80-96); MEAN PLT VOLUME 8.1 fl (7.5-11.1); PLATELET COUNT 399 K/MM3 (134-434); RBC 4.62 M/mm3 (4.00-5.60); RDW 12.9 % (11.9-15.9); WHITE BLOOD COUNT 19.6 K/mm3 (4.0-10.0)
--- NOTE | 2018-07-21 17:15 | PATH ---
Surgical Pathology Report Patient Name: BBAS MOORE [facility]. Rec. #: [id number] /Age/Gender: 1960 (Age: 58) / M Account: [id number] Location: [address] [place] [id number]/[facility] Taken: 07/19/2018 Received: 07/20/2018 Reported: 07/21/2018 Physicians: MD Shayne Palomo M.D. Specimen(s) Received GALLBLADDER Clinical History Abdominal pain, gallstone, pancreatitis Final Diagnosis GALLBLADDER, CHOLECYSTECTOMY: CHRONIC CHOLECYSTITIS AND CHOLELITHIASIS. Electronically Signed Marietta Andrea M.D. Gross Description Received in formalin, labeled "gallbladder," is a 10.8 x 3.0 x 2.8 cm. gallbladder with a 0.2 cm. in length portion of cystic duct attached. The outer surface is patel green and varies from smooth to shaggy. The lumen contains green, tenacious bile as well as multiple black, irregular to fragmented choleliths ranging from 0.1-0.6 cm in greatest dimension. The mucosa is dark green and velvety. The wall of the gallbladder measures 0.1 cm. in thickness. Poultry Scalder sections are submitted in one cassette. 07/20/201807/20/2018
--- NOTE | 2018-07-21 17:22 | PN ---
Teaching Attending Note Name of Resident: Jasmine Galeana ATTENDING PHYSICIAN STATEMENT I saw and evaluated the patient. I reviewed the resident's note and discussed the case with the resident. I agree with the resident's findings and plan as documented. SUBJECTIVE: Patient is comfortable with no acute distress. OBJECTIVE: Vital Signs Temperature 97.9 F 07/21/18 14:06 Pulse Rate 85 07/21/18 14:06 Respiratory Rate 20 07/21/18 09:00 Blood Pressure 135/85 07/21/18 14:06 O2 Sat by Pulse Oximetry (%) 97 07/21/18 09:00 GENERAL: AAOx3. Comfortable, laying in bed. NAD HEENT: AT/NC. EOMI. Moist mucus membranes. NECK: Supple. no jvd, LUNGS: B/L breath sounds equal HEART: RRR. Normal S1, S2. No murmurs noted. ABDOMEN: Soft, mild tenderness on the right upper quadrant and epigastric area, BS+. improving EXTREMITIES: 2+ dorsalis pedis pulses b/l. NEUROLOGICAL: No facial droop. Muscle strength 5/5 in all extremities, no tremors. Normal speech. PSYCHIATRIC: Cooperative. Good eye contact. Appropriate mood and affect. SKIN: Warm, dry, normal turgor, no rashes or lesions noted, normal capillary refill. CBCD WBC 19.6 K/mm3 (4.0-10.0) H 07/21/18 14:20 RBC 4.62 M/mm3 (4.00-5.60) 07/21/18 14:20 Hgb 15.3 GM/dL (11.7-16.9) 07/21/18 14:20 Hct 44.1 % (35.4-49) 07/21/18 14:20 MCV 95.4 fl (80-96) 07/21/18 14:20 MCHC 34.6 g/dl (32.0-35.9) 07/21/18 14:20 RDW 12.9 % (11.9-15.9) 07/21/18 14:20 Plt Count 399 K/MM3 (134-434) D 07/21/18 14:20 MPV 8.1 fl (7.5-11.1) 07/21/18 14:20 CMP Sodium 143 mmol/L (136-145) 07/20/18 07:26 Potassium 3.7 mmol/L (3.5-5.1) 07/20/18 07:26 Chloride 108 mmol/L (98-107) H 07/20/18 07:26 Carbon Dioxide 25 mmol/L (21-32) 07/20/18 07:26 Anion Gap 11 MMOL/L (8-16) 07/20/18 07:26 BUN 17 mg/dL (7-18) 07/20/18 07:26 Creatinine 0.8 mg/dL (0.55-1.3) 07/20/18 07:26 Creat Clearance w eGFR > 60 (>60) 07/20/18 07:26 Random Glucose 98 mg/dL (74-106) 07/20/18 07:26 Calcium 7.7 mg/dL (8.5-10.1) L 07/20/18 07:26 Total Bilirubin 0.4 mg/dL (0.2-1) 07/20/18 07:26 AST 25 U/L (15-37) 07/20/18 07:26 ALT 23 U/L (13-61) 07/20/18 07:26 Alkaline Phosphatase 53 U/L (45-117) 07/20/18 07:26 Total Protein 5.5 g/dl (6.4-8.2) L 07/20/18 07:26 Albumin 2.1 g/dl (3.4-5.0) L 07/20/18 07:26 CARDIAC ENZYMES Creatine Kinase 111 IU/L (26-308) 07/12/18 05:41 Troponin I < 0.02 ng/ml (0.00-0.05) 07/12/18 05:41 Current Medications Generic Name Dose Route Start Last Admin Trade Name Freq PRN Reason Stop Dose Admin Acetaminophen 1,000 mg 07/19/18 18:24 Ofirmev Injection - IVPB Q6H PRN PAIN LEVEL 4 - 6 Amlodipine Besylate 10 mg 07/20/18 10:00 07/21/18 09:33 Norvasc - PO 10 mg DAILY [facility] Administration Enoxaparin Sodium 40 mg 07/20/18 10:00 07/21/18 09:33 Lovenox - SQ 40 mg DAILY [facility] Administration Morphine Sulfate 2 mg 07/19/18 18:24 07/21/18 03:19 Morphine Sulfate IVPUSH 2 mg Q6H PRN Administration PAIN LEVEL 7 - 10 Ondansetron HCl 4 mg 07/19/18 18:24 Zofran Injection IVPUSH Q6H PRN NAUSEA Valsartan 160 mg 07/20/18 10:00 07/21/18 09:33 Diovan - PO 160 mg DAILY [facility] Administration Home Medications Medication Instructions Recorded Amlodipine Besylate [Norvasc -] 10 mg PO DAILY 09/26/17 Valsartan [Diovan] 160 mg PO DAILY 09/26/17 ASSESSMENT AND PLAN: 58 y/o man with h/o ETOH abuse, HTN, and asthma who presented with abd pain and was found to have gall stone pancreatitis . #pod #2 s/p lap choly s/p CCY, resume diet , pain control continue rocephin/ flagyl, f/u cbc in am, will discuss with sx and ID plan for discharge. # Acute gall stone pancreatitis: s/p ERCP with stone extraction and sphincterectomy. continue IVF and Abx. will d/w ID the duration of Abx # ETOH abuse: no signs of withdrawal off ativan now # HTN: cont Valsartan and norvasc DVt Px: Lovenox
--- NOTE | 2018-07-21 18:28 | PN ---
GI Progress Note Subjective: Sitting playing cards in the solarium with his father No abdominal pain + BMS and flatus DILLON drain removed - Objective Vital Signs: Vital Signs Temperature 97.9 F 07/21/18 14:06 Pulse Rate 85 07/21/18 14:06 Respiratory Rate 20 07/21/18 09:00 Blood Pressure 135/85 07/21/18 14:06 O2 Sat by Pulse Oximetry (%) 97 07/21/18 09:00 Constitutional: Calm Eyes: No: Sclera Icterus Cardiovascular: Yes: Regular Rate and Rhythm Respiratory: Yes: CTA Bilaterally Gastrointestinal Inspection: No: Distention ...Auscultate: Yes: Normoactive Bowel Sounds ...Palpate: Yes: Tenderness. No: Hepatomegaly, Splenomegaly ...Percussion: No: Tympanitic Edema: No (No LE edema) Neurological: Yes: Alert Labs: CBC, BMP 07/21/18 14:20 07/20/18 07:26 INR, PTT INR 1.21 (0.83-1.09) H 07/15/18 06:40 Problem List - Problems (1) Gallstone pancreatitis Assessment/Plan: S/P Lap wesly Clinically much improved however with persistent leukocytosis. Worse this afternoon Suspect secondary to residual inflammatory changes from pancreatitis. Agree with observation off antibiotics at this point prior to discharge If continued rising WBC's repeat imaging off the abdomen with contrast CT scan and evaluation for alternate causes of leukocytosis Code(s): K85.10 - BILIARY ACUTE PANCREATITIS WITHOUT NECROSIS OR INFECTION
[2018-07-22 07:20] LABS: HEMATOCRIT 43.1 % (35.4-49); HEMOGLOBIN 14.9 GM/dL (11.7-16.9); MCH 32.5 pg (25.7-33.7); MCHC 34.5 g/dl (32.0-35.9); MEAN CELL VOLUME 94.2 fl (80-96); MEAN PLT VOLUME 7.7 fl (7.5-11.1); PLATELET COUNT 311 K/MM3 (134-434); RBC 4.58 M/mm3 (4.00-5.60); RDW 12.6 % (11.9-15.9); WHITE BLOOD COUNT 15.4 K/mm3 (4.0-10.0)
[2018-07-22] MEDS: ENOXAPARIN NA (PORCINE) 40 MG/0.4 ML DISP.SYRIN SQ SCH (09:27)
[2018-07-22] MEDS: VALSARTAN 160 MG TABLET (UD) PO SCH (09:28)
[2018-07-22] MEDS: amLODIPine BESYLATE 10 MG TABLET (FP) PO SCH (09:28)
--- NOTE | 2018-07-22 09:50 | PN ---
Progress Note (short form) - Note Progress Note: POD #3 s/p lap choly eating normal diet feels well Vital Signs Period Temp Pulse Resp BP Sys/Almaguer Pulse Ox Last 24 Hr 97.5 F-99.1 F 85-89 20-20 120-143/60-96 98 cor-rrr lungs clear abd soft,nt ext no edema CBC, BMP 02/ 06:10 07/20/ 07:26 a/p pod #3 s/p lap choly gallstone pancreatitis persistent leukocytosis continue off antibiotics d/w GI would obtain imaging of the abdomen/pelvis ct scan
--- NOTE | 2018-07-22 10:54 | PN ---
GI Progress Note Subjective: Sitting up, no distress, had BM today WBC improved from last night however remains elevated - Objective Vital Signs: Vital Signs Temperature 98.1 F 07/22/18 09:00 Pulse Rate 87 07/22/18 09:00 Respiratory Rate 20 07/22/18 09:00 Blood Pressure 144/98 07/22/18 09:00 O2 Sat by Pulse Oximetry (%) 98 07/21/18 21:00 Constitutional: Calm Eyes: No: Sclera Icterus Cardiovascular: Yes: Regular Rate and Rhythm Respiratory: Yes: CTA Bilaterally Gastrointestinal Inspection: No: Distention ...Auscultate: Yes: Normoactive Bowel Sounds ...Palpate: No: Tenderness ...Percussion: Yes: Tympanitic (mild) Edema: No (No LE edema) Neurological: Yes: Alert Labs: CBC, BMP 07/22/18 06:10 07/20/18 07:26 INR, PTT INR 1.21 (0.83-1.09) H 07/15/18 06:40 Problem List - Problems (1) Gallstone pancreatitis Assessment/Plan: Clinically improved, however with persistent leukocytosis Oredered CT scan of the abdomen and pelvis with contrast prior to discharge to assess for any peripeg fluid collections Code(s): K85.10 - BILIARY ACUTE PANCREATITIS WITHOUT NECROSIS OR INFECTION
--- NOTE | 2018-07-22 11:20 | PN ---
Teaching Attending Note Name of Resident: Jasmine Galeana ATTENDING PHYSICIAN STATEMENT I saw and evaluated the patient. I reviewed the resident's note and discussed the case with the resident. I agree with the resident's findings and plan as documented. SUBJECTIVE: Patient is comfortable with no acute distress, no nausea or vomiting. no further pain. OBJECTIVE: Vital Signs Temperature 98.1 F 07/22/18 09:00 Pulse Rate 87 07/22/18 09:00 Respiratory Rate 20 07/22/18 09:00 Blood Pressure 144/98 07/22/18 09:00 O2 Sat by Pulse Oximetry (%) 98 07/21/18 21:00 GENERAL: AAOx3. Comfortable, laying in bed. NAD HEENT: AT/NC. EOMI. Moist mucus membranes. NECK: Supple. no jvd, LUNGS: B/L breath sounds equal HEART: RRR. Normal S1, S2. No murmurs noted. ABDOMEN: Soft, NT, positive for BS EXTREMITIES: 2+ dorsalis pedis pulses b/l. NEUROLOGICAL: No facial droop. Muscle strength 5/5 in all extremities, no tremors. Normal speech. PSYCHIATRIC: Cooperative. Good eye contact. Appropriate mood and affect. SKIN: Warm, dry, normal turgor, no rashes or lesions noted, normal capillary refill. CBCD WBC 15.4 K/mm3 (4.0-10.0) H 07/22/18 06:10 RBC 4.58 M/mm3 (4.00-5.60) 07/22/18 06:10 Hgb 14.9 GM/dL (11.7-16.9) 07/22/18 06:10 Hct 43.1 % (35.4-49) 07/22/18 06:10 MCV 94.2 fl (80-96) 07/22/18 06:10 MCHC 34.5 g/dl (32.0-35.9) 07/22/18 06:10 RDW 12.6 % (11.9-15.9) 07/22/18 06:10 Plt Count 311 K/MM3 (134-434) D 07/22/18 06:10 MPV 7.7 fl (7.5-11.1) 07/22/18 06:10 CMP Sodium 143 mmol/L (136-145) 07/20/18 07:26 Potassium 3.7 mmol/L (3.5-5.1) 07/20/18 07:26 Chloride 108 mmol/L (98-107) H 07/20/18 07:26 Carbon Dioxide 25 mmol/L (21-32) 07/20/18 07:26 Anion Gap 11 MMOL/L (8-16) 07/20/18 07:26 BUN 17 mg/dL (7-18) 07/20/18 07:26 Creatinine 0.8 mg/dL (0.55-1.3) 07/20/18 07:26 Creat Clearance w eGFR > 60 (>60) 07/20/18 07:26 Random Glucose 98 mg/dL (74-106) 07/20/18 07:26 Calcium 7.7 mg/dL (8.5-10.1) L 07/20/18 07:26 Total Bilirubin 0.4 mg/dL (0.2-1) 07/20/18 07:26 AST 25 U/L (15-37) 07/20/18 07:26 ALT 23 U/L (13-61) 07/20/18 07:26 Alkaline Phosphatase 53 U/L (45-117) 07/20/18 07:26 Total Protein 5.5 g/dl (6.4-8.2) L 07/20/18 07:26 Albumin 2.1 g/dl (3.4-5.0) L 07/20/18 07:26 CARDIAC ENZYMES Creatine Kinase 111 IU/L (26-308) 07/12/18 05:41 Troponin I < 0.02 ng/ml (0.00-0.05) 07/12/18 05:41 Current Medications Generic Name Dose Route Start Last Admin Trade Name Freq PRN Reason Stop Dose Admin Acetaminophen 1,000 mg 07/19/18 18:24 Ofirmev Injection - IVPB Q6H PRN PAIN LEVEL 4 - 6 Amlodipine Besylate 10 mg 07/20/18 10:00 07/22/18 09:28 Norvasc - PO 10 mg DAILY [facility] Administration Enoxaparin Sodium 40 mg 07/20/18 10:00 07/22/18 09:27 Lovenox - SQ 40 mg DAILY [facility] Administration Morphine Sulfate 2 mg 07/19/18 18:24 07/21/18 03:19 Morphine Sulfate IVPUSH 2 mg Q6H PRN Administration PAIN LEVEL 7 - 10 Ondansetron HCl 4 mg 07/19/18 18:24 Zofran Injection IVPUSH Q6H PRN NAUSEA Valsartan 160 mg 07/20/18 10:00 07/22/18 09:28 Diovan - PO 160 mg DAILY [facility] Administration Home Medications Medication Instructions Recorded Amlodipine Besylate [Norvasc -] 10 mg PO DAILY 09/26/17 Valsartan [Diovan] 160 mg PO DAILY 09/26/17 ASSESSMENT AND PLAN: 58 y/o man with h/o ETOH abuse, HTN, and asthma who presented with abd pain and was found to have gall stone pancreatitis . #pod #3 s/p lap choly s/p CCY, resume diet , off antibiotic now, CT scan of abdomen and pelvis is ordered, reviewed the result as per GI to be repeated in [address] scan report reviewed: peripancreatic fluid in lesser sack. Gi reviewed the CT scan , possible that patient is getting a pseudocyt may be forming but it is too early to tell at this point. No pancreatic necrosis was noted that would suggest that this is early walled off pancreatic necrosis and patient doing well clinically. Advise the patient to low fat diet and need close outpatient monitoring and timing of repeat imaging based on his overall clinical status. in 3-[address] of abdomen and pelvis and follow- up in office in 1 week with . # Acute gall stone pancreatitis: s/p ERCP with stone extraction and sphincterectomy. continue IVF and Abx. will d/w ID the duration of Abx # ETOH abuse: no signs of withdrawal off ativan now # HTN: cont Valsartan and norvasc DVt Px: Lovenox
[2018-07-22] MEDS ORDERED: ACETAMINOPHEN 325 MG TABLET (FP) PO PRN (14:57)
--- NOTE | 2018-07-22 15:09 | PN ---
Progress Note (short form) - Note Progress Note: CT scan report reviewed: peripancreatic fluid in lesser sack. To me it seems as though a pseudocyt may be forming but it is too early to tell at this point. Hopefully this will resorb in time. No pancreatic necrosis was noted that would suggest that this is early walled off pancreatic necosis and patient doing well clinically. He has been afebrile a free of abdominal pain. Advise low fat diet and will need close outpatient monitoring and timing of repeat imaging based on his ovarall clinical status. If remains well, repeat imaging 1 3-4 weeks. Would opt for MRI to limit radiation exposure. Can have him follow-up in office in 1 week Problem List - Problems (1) Gallstone pancreatitis Code(s): K85.10 - BILIARY ACUTE PANCREATITIS WITHOUT NECROSIS OR INFECTION
--- NOTE | 2018-07-22 17:23 | DS ---
Physical Exam: SUBJECTIVE: Patient seen and examined at bedside. No acute events overnight. OBJECTIVE: Vital Signs Period Temp Pulse Resp BP Sys/Almaguer Pulse Ox Last 24 Hr 97.5 F-99.1 F 86-89 20-20 120-144/60-98 98 PHYSICAL EXAM GENERAL: AAOx3. Comfortable, laying in bed. NAD HEENT: AT/NC. EOMI. Moist mucus membranes. NECK: Supple. LUNGS: B/L breath sounds equal HEART: RRR. Normal S1, S2. No murmurs noted. ABDOMEN: Soft, minimal abd tenderness, BS+. +Distension, surgical bandage c/d/i. MUSCULOSKELETAL: Normal range of motion at all joints. No bony deformities or tenderness. No CVA tenderness. EXTREMITIES: 2+ dorsalis pedis pulses b/l. NEUROLOGICAL: No facial droop. Muscle strength 5/5 in all extremities, no tremors. Normal speech. Gait not observed. PSYCHIATRIC: Cooperative. Good eye contact. Appropriate mood and affect. SKIN: Warm, dry, normal turgor, no rashes or lesions noted, normal capillary refill. LABS Laboratory Results - last 24 hr 07/22/18 06:10 WBC 15.4 H RBC 4.58 Hgb 14.9 Hct 43.1 MCV 94.2 MCH 32.5 MCHC 34.5 RDW 12.6 Plt Count 311 D MPV 7.7 HOSPITAL COURSE: Date of Admission:07/12/18 IMAGING * CTAP: Acute pancreatitis, most marked at head of pancreas; free fluid in peripancreatic region and R anterior pararenal space. Mildly distended GB w/ calculi. Suspected 3 mm calculus within distal CBD. Splenomegaly. * Abd U/S: Mildly distended GB w/ thickened wall and pericholecystic fluid, + Mohan sign. Diffuse fatty infiltration of liver. * ERCP: After an expelled stone was found adjacent to the papilla and bulging in the duodenal wall suggested residual stones a sphincterotomy was performed and another 2 stones were extracted after which the sludge began to flow liberally. * Abd X-ray: No sign of free air. Large heart, and some mild congestive changes and fluid in horizontal fissure. Distended loops of bowel mainly seen in upper abdomen. * CXR: No sign of PTX or pneumoperitoneum. * CTAP (07/14): increased pancreatic parenchymal swelling as well as increased peripancreatic fluid consistent w/ pancreatitis. SB distension consistent w/ ileus. 58 y/o M w/ PMHx HTN, alcohol abuse admitted 07/12 to [facility] with ruq/ epigastric pain, found to have gallstone pancreatitis/cholelithiasis, transferred to [facility]. Initial CTAP showed acute pancreatitis, mildly distended GB w/ calculi and suspected 3 mm calculi within distal CBD. Pt was given IVf, IV Flagyl, pain meds and kept NPO. Due to findings, both surgery and GI were consulted. Upon GI eval, ERCP was done in which 2 stones were extracted and a sphincterotomy was performed. Post-ERCP, pt was monitored and treated conservatively with medical mgmt although pt had persistent abdominal distension as well as RUQ tenderness with +Mohan sign. Pt remained on IV Flagyl and Ceftriaxone due to elevated WBC. After resolution of his abdominal symptoms, pt subsequently underwent an uncomplicated lap wesly. Repeat CTAP was done that showed peripancreatic fluid in less sac. Upon GI eval, since pancreatic necrosis was not a concerning factor and pt's abdominal symptoms had resolved, he was given recommendation to follow up with GI as outpatient in a week from discharge. He was advised to repeat imaging within 3-4 weeks. Upon discharge, pt was also advised to follow up with his PCP and surgeon for post- op follow up. Date of Discharge: 07/22/18 Minutes to complete discharge: 40 Discharge Summary Reason For Visit: ABD PAIN,GALLSTONE,PANCREATITS Condition: Improved - Instructions Diet, Activity, Other Instructions: Medical Discharge Instructions You were admitted to the hospital for gallstone pancreatitis. During this admission, you had an endoscopic retrograde pancreatography (ERCP) procedure which allowed several gallbladder stones to pass. You subsequently had your gallbladder removed surgically. We repeated a CAT scan after the procedure, and you still have a significant amount of fluid around your pancreas. You will have to monitor this fluid with a repeat scan in 2-3 weeks to check for resolution. -Please eat a low fat diet -Make sure to make an appointment with your primary care physician within 1 week to discuss your hospitalization and order repeat CAT scan or if possible to limit radiation exposure, MRI to check for whether the abdominal fluid has been resolved. If you experience severe abdominal pain, nausea, vomiting, diarrhea, fevers, chills, chest pain or shortness of breath, please return to the emergency room immediately Dr. Aviles Discharge Instructions Post Operative Instructions Physical activity Resume your normal everyday activity as tolerated no heavy lifting or exercise until seen by your surgeon. You may walk unlimited amounts of and climb stairs. You may resume driving the car when you feel safe and comfortable behind the wheel and are no longer taking narcotic pain medications. Wound care If you have a bandage, leave it on, and keep dry for 48 hours after the surgery. After that time discard the outer bandage. If there are tapes on the skin under the outer bandage, leave them in place. They will peel off in the next 7 to 10 days. Do Not peel them off. You also have a liquid glue beneath the steri-strips. It may begin to flake off over the next few days, do not peel it, it will come off on its own. You may shower 2 days after surgery, after removing the outer bandage. If there are tapes present on the skin, they can get wet. When showering, allow soap and water to run over the incision, do not scrub the incision. Pat dry well after showering. Diet There are no dietary restrictions. Eat healthy, high-fiber foods. Drink 6 to 8 glasses of liquid each day. This will assist in keeping your bowels are regular. Pain management You may take Tylenol (Acetaminophen) or Ibuprofen (for example, Motrin, Advil etc) for mild pain. Any pain prescription medication ordered should be taken as prescribed for moderate to severe pain. Please take as directed. If the prescribed dosage is not controlling your pain, please contact Dr Aviles. Do not drive, drink alcohol or operate heavy machinery while taking narcotic pain medications. You may Acetaminophen and Ibuprofen alternating. For example, you can take Acetaminophen at 10AM followed by Ibuprofen at 1pm, and Acetaminophen at 4pm. Take Ibuprofen with food, Acetaminophen may be taken on an empty stomach. Do not exceed 3g (3000mg) of Acetaminophen in 24 hours. Do not exceed 2400mg Ibuprofen in [address] Aviles for any of the following: Severe pain not relieved by medication Fever of 101 or higher Excessive bleeding or drainage on dressing Inability to urinate Call the office at [phone] for a post operative appointment in 7 - 10 days. ADDITIONAL REFERRALS Please follow up with your primary care physician, Dr. Liu, within 1 week. Please follow up with your GI doctor, Dr. Wynne, within 1 week. If you experience severe abdominal pain, nausea, vomiting, diarrhea, fevers, chills, chest pain or shortness of breath, please return to the emergency room immediately Referrals: Victor Manuel Aviles MD [Staff Physician] - 1 Week Talon Wynne DO [Staff Physician] - 1 Week Baljeet Liu MD [Primary Care Provider] - 1 Week Disposition: HOME - Home Medications Comprehensive Discharge Medication List: Ambulatory Orders Amlodipine Besylate [Norvasc -] 10 mg PO DAILY 09/26/17 Valsartan [Diovan] 160 mg PO DAILY 09/26/17 This patient is new to me today: No Emergency Visit: Yes ED Registration Date: 07/12/18 Care time: The patient presented to the Emergency Department on the above date and was hospitalized for further evaluation of their emergent condition. Critical Care patient: No - Discharge Referral Referred to [facility] Yes Physician Referral: Lauro Wynne DO (GI)
[2018-07-22 18:07] VITALS: BP 129/82; PULSE 90; TEMP 97.7
== END 2018-07-22 18:15 | disposition home or self-care (01) | DRG 263 ==
LOC: FER 04:54 → J6S 10:48
PROVIDERS: ADMIT Internal Medicine; ATTEND Internal Medicine
PROC: 0F7C8DZ Dilation of Ampulla of Vater with Intraluminal Device, Via Natural or Artificial Opening Endoscopic (ICD-10-PCS; 2018-07-12)
PROC: 0FC98ZZ Extirpation of Matter from Common Bile Duct, Via Natural or Artificial Opening Endoscopic (ICD-10-PCS; 2018-07-12)
PROC: BF10YZZ Fluoroscopy of Bile Ducts using Other Contrast (ICD-10-PCS; 2018-07-12)
PROC: 0FT44ZZ Resection of Gallbladder, Percutaneous Endoscopic Approach (ICD-10-PCS; principal; 2018-07-19 12:00)
DX: K80.51 Calculus of bile duct without cholangitis or cholecystitis with obstruction (principal); K85.10 Biliary acute pancreatitis without necrosis or infection; I10 Essential (primary) hypertension; F10.10 Alcohol abuse, uncomplicated; D72.829 Elevated white blood cell count, unspecified; K86.3 Pseudocyst of pancreas; K56.7 Ileus, unspecified; K86.89 Other specified diseases of pancreas; R00.1 Bradycardia, unspecified; I45.10 Unspecified right bundle-branch block; R16.1 Splenomegaly, not elsewhere classified; D75.1 Secondary polycythemia
CPT/HCPCS: 36415; 71045-TC-FY; 74019-TC-FY; 74177-TC; 74330-TC; 76705-TC; 80048; 80053; 80076; 81003; 81015; 82150; 82248; 82550; 83690; 83735; 84100; 84132; 84484; 85025; 85027; 85610; 85730; 86140; 86850; 86900; 86901; 87040; 87086; 88304-TC; 93005; 94640; 94760; 99284-25; J0131; J7030; Q9967

== ENCOUNTER 2018-09-22 08:54 | Day surgery (SDC) | payer OTHER ==
[2018-09-22 09:32] VITALS: TEMP 97.9; BMI 25.8
[2018-09-22 11:36] VITALS: BP 108/80; PULSE 60
--- NOTE | 2018-09-23 17:05 | PATH ---
Surgical Pathology Report Patient Name: BABS MOORE [facility]. Rec. #: [id number] /Age/Gender: 1960 (Age: 58) / M Account: [id number] Location: [facility]-ENDOSCOPY Taken: 09/22/2018 Received: 09/22/2018 Reported: 09/23/2018 Physicians: Lauro Wynne D.O. Specimen(s) Received A: MID TRANSVERSE COLON B: DISTAL TRANSVERSE COLON C: POLYP RECTOSIGMOID Clinical History Screening, average risk Postoperative diagnosis: Diverticulosis, colon polyps, fair prep Final Diagnosis A. MID TRANSVERSE COLON, POLYP, POLYPECTOMY: tubular adenoma. B. distal TRANSVERSE COLON, POLYP, POLYPECTOMY: tubular adenoma. C. rectosigmoid COLON, POLYP, POLYPECTOMY: tubular adenoma. Electronically Signed Shannen Mendez M.D. Gross Description A. Received in formalin, labeled "colon polyp mid transverse" is a patel, irregular portion of soft tissue measuring 0.4 cm. in greatest dimension. The specimen is submitted in toto in one cassette. B. Received in formalin, labeled "polyp distal transverse colon" is a patel, irregular portion of soft tissue measuring 0.7 cm. in greatest dimension. The specimen is submitted in toto in one cassette. C. Received in formalin, labeled "polyp rectosigmoid colon" is a patel, irregular portion of soft tissue measuring 0.5 cm. in greatest dimension. The specimen is submitted in toto in one cassette. 09/22/2018 saudi09/22/2018
== END 2018-09-22 11:53 | disposition home or self-care (01) ==
LOC: JASU-ENDO 08:54
PROVIDERS: ATTEND Internal Medicine Gastroenterology
PROC: 0DBL8ZX Excision of Transverse Colon, Via Natural or Artificial Opening Endoscopic, Diagnostic (ICD-10-PCS; 2018-09-22)
PROC: 0DBN8ZX Excision of Sigmoid Colon, Via Natural or Artificial Opening Endoscopic, Diagnostic (ICD-10-PCS; principal; 2018-09-22 09:30)
DX: Z12.11 Encounter for screening for malignant neoplasm of colon (principal); K57.30 Diverticulosis of large intestine without perforation or abscess without bleeding; K64.8 Other hemorrhoids; D12.7 Benign neoplasm of rectosigmoid junction; D12.3 Benign neoplasm of transverse colon
CPT/HCPCS: 88305-TC

== ENCOUNTER 2021-01-23 20:12 | Emergency (ER) | payer OTHER ==
[2021-01-23 20:20] VITALS: BP 113/76; PULSE 86; TEMP 97; BMI 25.5
[2021-01-23] MEDS ORDERED: KETOROLAC TROMETHAMINE 30 MG/1 ML VIAL IM ONE (21:34)
== END 2021-01-23 23:06 | disposition home or self-care (01) ==
LOC: JERFT 20:12
PROC: 3E0233Z Introduction of Anti-inflammatory into Muscle, Percutaneous Approach (ICD-10-PCS; principal; 2021-01-23)
DX: M79.651 Pain in right thigh (principal); X50.0XXA Overexertion from strenuous movement or load, initial encounter
CPT/HCPCS: 99284-25